=== PATIENT | female | born 1965 | race African-American/Black ===

== ENCOUNTER 2020-03-20 16:04 | Inpatient (IN) ==
[2020-03-20] MEDS ORDERED: AZITHROMYCIN INJ 500 MG in SODIUM CHLORIDE 0.9% 250 ML IV STA (16:39)
[2020-03-20] MEDS ORDERED: FUROSEMIDE 40 MG/4 ML VIAL IV STA (16:39)
[2020-03-20] MEDS ORDERED: cefTRIAXone 1,000 MG in SODIUM CHLORIDE 0.9% 100 ML IV STA (16:39)
[2020-03-20] MEDS ORDERED: methylPREDNISolone SOD SUC 125 MG/2 ML VIAL IV STA (16:39)
[2020-03-20] MEDS ORDERED: FUROSEMIDE 40 MG/4 ML VIAL ONE (16:43)
[2020-03-20] MEDS ORDERED: methylPREDNISolone SOD SUC 125 MG/2 ML VIAL ONE (16:43)
[2020-03-20] MEDS ORDERED: VANCOMYCIN INJ 1,000 MG in SODIUM CHLORIDE 0.9% 250 ML IV STA (16:46)
[2020-03-20] MEDS ORDERED: ALBUTEROL NEB SOLN 5 MG/ML 20 ML/BOTTLE CONT NEB SCH (17:00)
[2020-03-20 17:03] LABS: ABG Base Excess -0.3 MMOL/L (-2.5-2.5); ABG Oxygen Saturation 46.8 % (95-100); ABG PCO2 57.5 MM HG (35-48); ABG PH 7.292 (7.35-7.45); ABG TCO2 24.7 MMOL/L (23-27)
[2020-03-20 17:08] LABS: ABG PO2 32.2 MM HG (80-95)
[2020-03-20 17:10] LABS: INR 1.2; PT Patient Result 13.1 SECS (9.8-11.9)
[2020-03-20 17:13] LABS: Apearance,Urine CLOUDY (Clear); Bacteria,Urine Moderate /HPF (Few); Barbiturates Screen,Urine Negative (Negative); Benzodiazepines Screen,Urine Negative (Negative); Bilirubin,Urine Negative (Negative); Blood, Urine Moderate mg/dL (Negative); Cannabinoid Screen,Urine Negative (Negative); Glucose,Urine (UA) Negative (Negative); Hyaline Casts,Urine 7 /LPF (0-3); Ketones,Urine Negative (Negative); Mucus,Urine Occasional /LPF (Occasional); Nitrite,Urine Negative (Negative); Opiate Screen,Urine Negative (Negative); Phencyclidine Screen,Urine Negative (Negative); Protein,Urine 30 MG/DL; RBC,Urine 3 /HPF (0-4); Sperm,Urine Occasional /HPF (Negative); Squamous Epithelial Cell,Urine Occasional /HPF (0-10); Urine Color Yellow (Yellow); Urine Specific Gravity 1.011 (1.001-1.035); Urine Urobilinogen < 2.0 EU/DL (0.2-1.0)
[2020-03-20 17:25] LABS: Basophils # 0.1 10*3/uL (0.0-0.2); Basophils % 0.3 % (0.0-0.8); Hematocrit 46.9 VOL% (35.7-47.0); Hemoglobin 14.2 GM/DL (12.0-16.0); Immature Granulocytes % 1.2 %; Immature Granulocytes Absolute 0.31 #; Lymphocytes # 1.3 10*3/uL (1.4-4.0); Mean Corpuscular HGB Conc 30.3 GM/DL (32-36); Monocytes % 1.7 % (1.7-12.7); NRBC # 0.04 10*3/uL; Neutrophils % 91.8 % (38.7-73.9); Platelet Count 344 T/CUMM (130-400); Red Blood Count 5.72 MC/CUMM (3.8-5.5); Red Cell Distribution Width 15.8 % (9.3-17.3); White Blood Count 25.5 T/CUMM (4-12)
[2020-03-20 17:26] LABS: Alanine Aminotransferase 38 U/L (13-56); Alkaline Phosphatase 85 U/L (45-117); Aspartate Amino Transferase 72 U/L (0-37); Blood Urea Nitrogen 16 MG/DL (7-18); CKMB % 0.4 %; Calcium 9.1 MG/DL (8.5-10.1); Estimated Glom Filtration Rate 83 ML/MIN; Glucose 156 MG/DL (74-106); Osmolality,Calculated 269.4 MOS/KG (273-304); Total Protein 8.9 G/DL (6.4-8.3); Troponin I < 0.015 NG/ML (0.00-0.045)
[2020-03-20 17:40] LABS: Band Neutrophils 1 % (0-10); Lymphocytes 7 % (20-55); Myelocytes 1 %; Segmented Neutrophils 89 % (50-85); Total Cells Counted 100; Toxic Granulation 1+
[2020-03-20 17:41] LABS: Hypochromasia Slight; Microcytosis 1+; Platelet Estimate Normal; Poikilocytosis 1+
[2020-03-20 17:42] LABS: Ferritin 191.2 ng/ml (8-252)
[2020-03-20 18:27] LABS: ABG Base Excess 2.7 MMOL/L (-2.5-2.5); ABG HCO3 25.3 MMOL/L (20-26); ABG Oxygen Saturation 32.8 % (95-100); ABG PCO2 45.3 MM HG (35-48); ABG PH 7.401 (7.35-7.45); ABG TCO2 24.8 MMOL/L (23-27)
[2020-03-20 18:30] LABS: ABG PO2 22.9 MM HG (80-95)
[2020-03-20] MEDS ORDERED: ETOMIDATE 20 MG/10 ML VIAL IV STA (18:40)
[2020-03-20] MEDS ORDERED: ROCURONIUM 100 MG/10 ML VIAL IV STA (18:41)
[2020-03-20] MEDS ORDERED: ROCURONIUM 100 MG/10 ML VIAL IV ONE (19:00)
[2020-03-20] MEDS ORDERED: ETOMIDATE 20 MG/10 ML VIAL IV ONE (19:00)
[2020-03-20] MEDS ORDERED: GLUCAGON 1 MG VIAL IM PRN (20:14)
[2020-03-20] MEDS ORDERED: ONDANSETRON 4 MG/2 ML VIAL IV PRN (20:26)
[2020-03-20] MEDS ORDERED: SODIUM CHLORIDE 0.9% 1,000 ML IV SCH (20:30)
[2020-03-20] MEDS ORDERED: METOPROLOL TARTRATE 5 MG/5 ML VIAL IV ONE (20:54)
[2020-03-20] MEDS ORDERED: DEXTROSE 10% 250 ML BAG IV PRN (20:55)
[2020-03-20] MEDS ORDERED: VECURONIUM 10 MG VIAL IV ONE (21:24)
[2020-03-20] MEDS ORDERED: VECURONIUM 10 MG VIAL IV STA (21:43)
[2020-03-20] MEDS ORDERED: FUROSEMIDE 40 MG/4 ML VIAL IV ONE (23:56)
[2020-03-21 00:04] LABS: ABG Base Excess -1.5 MMOL/L (-2.5-2.5); ABG HCO3 22.2 MMOL/L (20-26); ABG Oxygen Saturation 55.4 % (95-100); ABG TCO2 29.1 MMOL/L (23-27); Allen Test Positive; Pt O2 Delivery Device Ventilator
[2020-03-21 00:07] LABS: ABG PCO2 92.2 MM HG (35-48); ABG PH 7.146 (7.35-7.45)
[2020-03-21 00:08] LABS: ABG PO2 40.7 MM HG (80-95)
[2020-03-21 01:37] LABS: ABG Base Excess 0.1 MMOL/L (-2.5-2.5); ABG HCO3 24.1 MMOL/L (20-26); ABG Oxygen Saturation 80.4 % (95-100); ABG PCO2 65.1 MM HG (35-48); ABG PH 7.262 (7.35-7.45); ABG PO2 53.6 MM HG (80-95); ABG TCO2 26.1 MMOL/L (23-27); Allen Test Positive; Pt O2 Delivery Device Ventilator
[2020-03-21] MEDS: ROCURONIUM 500 MG in SODIUM CHLORIDE 0.9% 500 ML IV PRN ×4 (01:53→20:41)
[2020-03-21] MEDS: DOBUTamine 500 MG/250 ML PREMIX IV PRN (03:01)
[2020-03-21 03:43] LABS: ABG Base Excess -0.3 MMOL/L (-2.5-2.5); ABG HCO3 23.8 MMOL/L (20-26); ABG Oxygen Saturation 78.1 % (95-100); ABG PCO2 61.3 MM HG (35-48); ABG PH 7.274 (7.35-7.45); ABG PO2 50.1 MM HG (80-95); ABG TCO2 25.2 MMOL/L (23-27); Allen Test Positive; Pt O2 Delivery Device Ventilator
[2020-03-21 03:57] LABS: Calcium 8.9 MG/DL (8.5-10.1); Osmolality,Calculated 275.1 MOS/KG (273-304); Risk Ratio 5.86; Thyroid Stimulating Hormone 0.589 uIU/ml (0.358-3.74); VLDL CHOLESTEROL 37.2 MG/DL
[2020-03-21 03:58] LABS: Basophils % 0.2 % (0.0-0.8); Hematocrit 44.4 VOL% (35.7-47.0); Hemoglobin 13.1 GM/DL (12.0-16.0); Immature Granulocytes % 0.9 %; Immature Granulocytes Absolute 0.21 #; Lymphocytes # 0.7 10*3/uL (1.4-4.0); Mean Corpuscular HGB Conc 29.5 GM/DL (32-36); Mean Corpuscular Volume 84.6 FL (87-102); Monocytes % 1.1 % (1.7-12.7); NRBC # 0.06 10*3/uL; Neutrophils % 94.8 % (38.7-73.9); Platelet Count 273 T/CUMM (130-400); Red Blood Count 5.25 MC/CUMM (3.8-5.5); Red Cell Distribution Width 15.9 % (9.3-17.3); White Blood Count 23.1 T/CUMM (4-12)
[2020-03-21 04:13] LABS: Band Neutrophils 3 % (0-10); Lymphocytes 2 % (20-55); Nucleated Red Blood Cells 1 (0-5); Segmented Neutrophils 94 % (50-85); Total Cells Counted 100
[2020-03-21 04:14] LABS: Anisocytosis Slight; Microcytosis 1+; Platelet Estimate Normal
[2020-03-21 04:15] LABS: Hypochromasia 1+; Polychromasia Slight
[2020-03-21] MEDS: INSULIN LISPRO 100 UNIT/ML SUBCUT SCH ×5 (07:22→20:41)
[2020-03-21] MEDS ORDERED: FUROSEMIDE 20 MG/2 ML VIAL IV SCH (08:00)
[2020-03-21] MEDS: PANTOPRAZOLE 40 MG VIAL IV SCH (08:00)
[2020-03-21] MEDS: FUROSEMIDE 20 MG/2 ML VIAL IV SCH ×2 (08:02→16:00)
[2020-03-21] MEDS: cefTRIAXone 1,000 MG in SYRINGE 1 EACH IV SCH (08:30)
[2020-03-21] MEDS ORDERED: HEPARIN 5,000 UNIT/1 ML VIAL SUBCUT SCH (09:00)
[2020-03-21] MEDS: methylPREDNISolone SOD SUC 40 MG/1 ML VIAL IV SCH ×2 (10:43→16:30)
[2020-03-21] MEDS: ENOXAPARIN 150 MG/ML SYRINGE SUBCUT SCH ×2 (10:44→23:49)
[2020-03-21] MEDS ORDERED: SODIUM CHLORIDE 0.9% 250 ML IV ONE (17:32)
[2020-03-21] MEDS ORDERED: AZITHROMYCIN INJ 500 MG in SODIUM CHLORIDE 0.9% 250 ML IV SCH (18:00)
[2020-03-21] MEDS: AZITHROMYCIN INJ 250 MG in SODIUM CHLORIDE 0.9% 250 ML IV SCH (19:04)
[2020-03-22] MEDS: methylPREDNISolone SOD SUC 40 MG/1 ML VIAL IV SCH ×3 (00:30→16:45)
[2020-03-22] MEDS: DOBUTamine 500 MG/250 ML PREMIX IV PRN (04:10)
[2020-03-22 04:58] LABS: ABG Base Excess 3.6 MMOL/L (-2.5-2.5); ABG HCO3 27.3 MMOL/L (20-26); ABG Oxygen Saturation 78.3 % (95-100); ABG PCO2 52.8 MM HG (35-48); ABG PH 7.365 (7.35-7.45); ABG PO2 46.6 MM HG (80-95); Allen Test Positive; Pt O2 Delivery Device Ventilator
[2020-03-22] MEDS: PANTOPRAZOLE 40 MG VIAL IV SCH (08:30)
[2020-03-22] MEDS: FUROSEMIDE 20 MG/2 ML VIAL IV SCH ×2 (08:30→16:45)
[2020-03-22] MEDS: cefTRIAXone 1,000 MG in SYRINGE 1 EACH IV SCH (08:36)
[2020-03-22 08:51] LABS: Basophils % 0.1 % (0.0-0.8); Hemoglobin 11.5 GM/DL (12.0-16.0); Immature Granulocytes % 2.1 %; Immature Granulocytes Absolute 0.47 #; Lymphocytes # 0.5 10*3/uL (1.4-4.0); Mean Corpuscular HGB Conc 30.3 GM/DL (32-36); Mean Corpuscular Volume 81.9 FL (87-102); Mean Platelet Volume 10.6 FL (9.6-12.0); Monocytes % 1.3 % (1.7-12.7); Neutrophils % 94.5 % (38.7-73.9); Platelet Count 255 T/CUMM (130-400); Red Blood Count 4.64 MC/CUMM (3.8-5.5); Red Cell Distribution Width 16.2 % (9.3-17.3); White Blood Count 22.8 T/CUMM (4-12)
[2020-03-22 09:12] LABS: Band Neutrophils 3 % (0-10); Hypochromasia 1+; Lymphocytes 2 % (20-55); Microcytosis 1+; Ovalocytes Slight; Platelet Estimate Adequate; Segmented Neutrophils 94 % (50-85); Total Cells Counted 100
[2020-03-22] MEDS: INSULIN LISPRO 100 UNIT/ML SUBCUT SCH ×4 (09:15→21:03)
[2020-03-22 09:16] LABS: Albumin 2.1 G/DL (3.4-5.0); Bilirubin,Total 0.6 MG/DL (0.2-1.0); Calcium 8.3 MG/DL (8.5-10.1); Osmolality,Calculated 280.7 MOS/KG (273-304); Total Protein 6.8 G/DL (6.4-8.3)
[2020-03-22] MEDS: POTASSIUM CHLORIDE 20 MEQ/15 ML UDCUP PER TUBE SCH ×2 (11:10→13:25)
[2020-03-22] MEDS: ENOXAPARIN 150 MG/ML SYRINGE SUBCUT SCH ×2 (11:10→21:03)
[2020-03-22] MEDS: ROCURONIUM 500 MG in SODIUM CHLORIDE 0.9% 500 ML IV PRN ×2 (15:00→22:16)
[2020-03-22] MEDS: AZITHROMYCIN INJ 250 MG in SODIUM CHLORIDE 0.9% 250 ML IV SCH (17:05)
[2020-03-23] MEDS: methylPREDNISolone SOD SUC 40 MG/1 ML VIAL IV SCH ×3 (00:29→17:48)
[2020-03-23] MEDS: ROCURONIUM 500 MG in SODIUM CHLORIDE 0.9% 500 ML IV PRN ×4 (04:30→23:50)
[2020-03-23 04:55] LABS: Albumin 2.1 G/DL (3.4-5.0); Bilirubin,Total 0.4 MG/DL (0.2-1.0); Calcium 7.9 MG/DL (8.5-10.1); Osmolality,Calculated 285.3 MOS/KG (273-304); Total Protein 6.7 G/DL (6.4-8.3)
[2020-03-23 05:01] LABS: ABG Base Excess 3.6 MMOL/L (-2.5-2.5); ABG HCO3 29.9 MMOL/L (20-26); ABG Oxygen Saturation 92.1 % (95-100); ABG PH 7.369 (7.35-7.45); ABG PO2 67.3 MM HG (80-95); ABG TCO2 31.5 MMOL/L (23-27); Allen Test Positive; Pt O2 Delivery Device Ventilator
[2020-03-23 05:05] LABS: Basophils # 0.1 10*3/uL (0.0-0.2); Basophils % 0.3 % (0.0-0.8); Hematocrit 37.7 VOL% (35.7-47.0); Hemoglobin 11.3 GM/DL (12.0-16.0); Immature Granulocytes % 4.1 %; Lymphocytes # 0.5 10*3/uL (1.4-4.0); Lymphocytes % 2.6 % (21.3-54.2); Mean Corpuscular Volume 82.9 FL (87-102); Mean Platelet Volume 11.1 FL (9.6-12.0); Monocytes % 2.4 % (1.7-12.7); NRBC # 0.09 10*3/uL; Neutrophils % 90.6 % (38.7-73.9); Platelet Count 281 T/CUMM (130-400); Red Blood Count 4.55 MC/CUMM (3.8-5.5); Red Cell Distribution Width 16.4 % (9.3-17.3); White Blood Count 19.5 T/CUMM (4-12)
[2020-03-23 05:41] LABS: Band Neutrophils 2 % (0-10); Hypochromasia 1+; Lymphocytes 1 % (20-55); Microcytosis 1+; Platelet Estimate Normal; Segmented Neutrophils 94 % (50-85); Total Cells Counted 100
[2020-03-23] MEDS: DOBUTamine 500 MG/250 ML PREMIX IV PRN (06:23)
[2020-03-23] MEDS: INSULIN LISPRO 100 UNIT/ML SUBCUT SCH ×3 (07:54→17:48)
[2020-03-23] MEDS: FUROSEMIDE 20 MG/2 ML VIAL IV SCH ×2 (08:51→17:47)
[2020-03-23] MEDS: cefTRIAXone 1,000 MG in SYRINGE 1 EACH IV SCH (08:52)
[2020-03-23] MEDS: PANTOPRAZOLE 40 MG VIAL IV SCH (08:53)
[2020-03-23] MEDS: ENOXAPARIN 150 MG/ML SYRINGE SUBCUT SCH ×2 (11:31→21:45)
[2020-03-23] MEDS: AZITHROMYCIN INJ 250 MG in SODIUM CHLORIDE 0.9% 250 ML IV SCH (17:48)
[2020-03-23] MEDS: HYDROXYCHLOROQUINE 200 MG TABLET PO SCH (21:44)
[2020-03-23] MEDS: ZINC SULFATE 220 MG CAPSULE PO SCH (21:45)
[2020-03-24] MEDS: INSULIN LISPRO 100 UNIT/ML SUBCUT SCH ×4 (00:35→19:34)
[2020-03-24] MEDS: methylPREDNISolone SOD SUC 40 MG/1 ML VIAL IV SCH ×3 (00:35→18:00)
[2020-03-24 03:52] LABS: ABG Base Excess 6.2 MMOL/L (-2.5-2.5); ABG Oxygen Saturation 99.1 % (95-100); ABG PCO2 51.8 MM HG (35-48); ABG PH 7.402 (7.35-7.45); ABG TCO2 28.8 MMOL/L (23-27); Allen Test Positive; Pt O2 Delivery Device Ventilator
[2020-03-24 05:57] LABS: Basophils # 0.1 10*3/uL (0.0-0.2); Basophils % 0.4 % (0.0-0.8); Hematocrit 39.8 VOL% (35.7-47.0); Immature Granulocytes % 6.5 %; Immature Granulocytes Absolute 1.21 #; Lymphocytes # 0.6 10*3/uL (1.4-4.0); Lymphocytes % 3.4 % (21.3-54.2); Mean Corpuscular HGB Conc 28.1 GM/DL (32-36); Mean Corpuscular Volume 87.3 FL (87-102); Mean Platelet Volume 10.9 FL (9.6-12.0); Monocytes % 4.7 % (1.7-12.7); NRBC # 0.07 10*3/uL; Platelet Count 362 T/CUMM (130-400); Red Blood Count 4.56 MC/CUMM (3.8-5.5); Red Cell Distribution Width 16.7 % (9.3-17.3); White Blood Count 18.6 T/CUMM (4-12)
[2020-03-24 06:01] LABS: Calcium 8.3 MG/DL (8.5-10.1); Osmolality,Calculated 290.8 MOS/KG (273-304)
[2020-03-24 06:03] LABS: Hemoglobin 11.2 GM/DL (12.0-16.0)
[2020-03-24 06:49] LABS: Band Neutrophils 7 % (0-10); Lymphocytes 2 % (20-55); Metamyelocytes 6 %; Nucleated Red Blood Cells 1 (0-5); Segmented Neutrophils 78 % (50-85); Total Cells Counted 100
[2020-03-24 06:50] LABS: Anisocytosis 1+; Hypochromasia 2+; Macrocytosis 1+; Ovalocytes 1+; Target Cells 1+
[2020-03-24] MEDS ORDERED: MIDAZOLAM 100 MG in SODIUM CHLORIDE 0.9% 80 ML IV PRN (08:05)
[2020-03-24] MEDS: HYDROXYCHLOROQUINE 200 MG TABLET PO SCH ×2 (08:56→21:35)
[2020-03-24] MEDS: fentaNYL INJ 1,250 MCG in SODIUM CHLORIDE 0.9% 225 ML IV PRN ×3 (08:59→21:35)
[2020-03-24] MEDS: ENOXAPARIN 150 MG/ML SYRINGE SUBCUT SCH ×2 (08:59→21:35)
[2020-03-24] MEDS: PANTOPRAZOLE 40 MG VIAL IV SCH (09:00)
[2020-03-24] MEDS: FUROSEMIDE 20 MG/2 ML VIAL IV SCH ×2 (09:00→16:02)
[2020-03-24] MEDS: cefTRIAXone 1,000 MG in SYRINGE 1 EACH IV SCH (09:37)
[2020-03-24] MEDS ORDERED: SODIUM CHLORIDE 0.9% 1,000 ML IV PRN (10:44)
[2020-03-24] MEDS ORDERED: NOREPINEPHRINE 8 MG in SODIUM CHLORIDE 0.9% 242 ML IV PRN (11:47)
[2020-03-24] MEDS: ROCURONIUM 500 MG in SODIUM CHLORIDE 0.9% 500 ML IV PRN ×2 (13:01→19:00)
[2020-03-24] MEDS: AZITHROMYCIN INJ 250 MG in SODIUM CHLORIDE 0.9% 250 ML IV SCH (18:30)
[2020-03-25] MEDS: methylPREDNISolone SOD SUC 40 MG/1 ML VIAL IV SCH ×3 (00:10→17:15)
[2020-03-25] MEDS: ROCURONIUM 500 MG in SODIUM CHLORIDE 0.9% 500 ML IV PRN ×5 (00:15→23:35)
[2020-03-25] MEDS: INSULIN LISPRO 100 UNIT/ML SUBCUT SCH ×4 (00:24→17:54)
[2020-03-25] MEDS: fentaNYL INJ 1,250 MCG in SODIUM CHLORIDE 0.9% 225 ML IV PRN ×5 (03:10→23:00)
[2020-03-25 04:00] LABS: ABG Base Excess 7.8 MMOL/L (-2.5-2.5); ABG HCO3 34.2 MMOL/L (20-26); ABG Oxygen Saturation 92.3 % (95-100); ABG PCO2 56.3 MM HG (35-48); ABG PH 7.401 (7.35-7.45); ABG PO2 68.2 MM HG (80-95); ABG TCO2 35.9 MMOL/L (23-27); Allen Test Positive; Pt O2 Delivery Device Ventilator
[2020-03-25 05:22] LABS: Calcium 8.1 MG/DL (8.5-10.1); Osmolality,Calculated 304.1 MOS/KG (273-304)
[2020-03-25] MEDS: PANTOPRAZOLE 40 MG VIAL IV SCH (08:00)
[2020-03-25] MEDS: ZINC SULFATE 220 MG CAPSULE PO SCH (08:14)
[2020-03-25] MEDS: HYDROXYCHLOROQUINE 200 MG TABLET PO SCH ×2 (08:14→21:00)
[2020-03-25] MEDS: FUROSEMIDE 20 MG/2 ML VIAL IV SCH (08:15)
[2020-03-25] MEDS: cefTRIAXone 1,000 MG in SYRINGE 1 EACH IV SCH (08:21)
[2020-03-25] MEDS: ENOXAPARIN 150 MG/ML SYRINGE SUBCUT SCH ×2 (09:01→21:00)
[2020-03-25] MEDS: LISINOPRIL/HCTZ 20-12.5 MG TABLET PO SCH (12:15)
[2020-03-25] MEDS: amLODIPine 5 MG TABLET PO SCH (12:15)
[2020-03-26] MEDS: INSULIN LISPRO 100 UNIT/ML SUBCUT SCH ×5 (01:01→23:37)
[2020-03-26] MEDS: methylPREDNISolone SOD SUC 40 MG/1 ML VIAL IV SCH ×3 (01:02→17:37)
[2020-03-26] MEDS: fentaNYL INJ 2,500 MCG in SODIUM CHLORIDE 0.9% 450 ML IV PRN ×4 (01:25→19:36)
[2020-03-26 03:59] LABS: Allen Test Positive; Pt O2 Delivery Device Ventilator
[2020-03-26 04:04] LABS: ABG Base Excess 9.3 MMOL/L (-2.5-2.5); ABG Oxygen Saturation 92.3 % (95-100); ABG PCO2 58.4 MM HG (35-48); ABG PO2 66.5 MM HG (80-95); ABG TCO2 32.6 MMOL/L (23-27)
[2020-03-26 05:21] LABS: Basophils # 0.1 10*3/uL (0.0-0.2); Basophils % 0.7 % (0.0-0.8); Hematocrit 36.9 VOL% (35.7-47.0); Hemoglobin 10.5 GM/DL (12.0-16.0); Immature Granulocytes % 13.3 %; Immature Granulocytes Absolute 1.81 #; Lymphocytes # 0.6 10*3/uL (1.4-4.0); Lymphocytes % 4.2 % (21.3-54.2); Mean Corpuscular HGB Conc 28.5 GM/DL (32-36); Mean Corpuscular Volume 87.2 FL (87-102); Mean Platelet Volume 11.2 FL (9.6-12.0); Monocytes % 5.4 % (1.7-12.7); NRBC # 0.02 10*3/uL; Neutrophils % 76.4 % (38.7-73.9); Platelet Count 343 T/CUMM (130-400); Red Blood Count 4.23 MC/CUMM (3.8-5.5); Red Cell Distribution Width 16.8 % (9.3-17.3); White Blood Count 13.6 T/CUMM (4-12)
[2020-03-26 05:26] LABS: Band Neutrophils 2 % (0-10); Hypochromasia 1+; Lymphocytes 9 % (20-55); Microcytosis 1+; Nucleated Red Blood Cells 1 (0-5); Platelet Estimate Adequate; Segmented Neutrophils 80 % (50-85); Total Cells Counted 100
[2020-03-26] MEDS: ROCURONIUM 500 MG in SODIUM CHLORIDE 0.9% 500 ML IV PRN ×3 (05:29→19:32)
[2020-03-26 05:43] LABS: Calcium 8.5 MG/DL (8.5-10.1); Osmolality,Calculated 308.9 MOS/KG (273-304)
[2020-03-26] MEDS: amLODIPine 5 MG TABLET PO SCH (08:19)
[2020-03-26] MEDS: FUROSEMIDE 40 MG/5 ML UDCUP PO SCH (08:19)
[2020-03-26] MEDS: LISINOPRIL/HCTZ 20-12.5 MG TABLET PO SCH (08:20)
[2020-03-26] MEDS: cefTRIAXone 1,000 MG in SYRINGE 1 EACH IV SCH (08:20)
[2020-03-26] MEDS: PANTOPRAZOLE 40 MG VIAL IV SCH (08:20)
[2020-03-26] MEDS: HYDROXYCHLOROQUINE 200 MG TABLET PO SCH ×2 (08:43→22:26)
[2020-03-26] MEDS: ENOXAPARIN 150 MG/ML SYRINGE SUBCUT SCH ×2 (09:02→22:26)
[2020-03-26] MEDS ORDERED: ROCURONIUM 100 MG/10 ML VIAL IV ONE (12:03)
[2020-03-27] MEDS: methylPREDNISolone SOD SUC 40 MG/1 ML VIAL IV SCH ×3 (01:02→16:30)
[2020-03-27] MEDS: fentaNYL INJ 2,500 MCG in SODIUM CHLORIDE 0.9% 450 ML IV PRN ×3 (01:47→14:52)
[2020-03-27] MEDS: ROCURONIUM 500 MG in SODIUM CHLORIDE 0.9% 500 ML IV PRN ×2 (02:06→08:40)
[2020-03-27] MEDS: INSULIN LISPRO 100 UNIT/ML SUBCUT SCH ×3 (06:08→17:01)
[2020-03-27 08:24] LABS: ABG Base Excess 6.2 MMOL/L (-2.5-2.5); ABG Oxygen Saturation 95.4 % (95-100); ABG PCO2 58.3 MM HG (35-48); ABG PH 7.364 (7.35-7.45); ABG PO2 79.8 MM HG (80-95); ABG TCO2 30.1 MMOL/L (23-27); Allen Test Positive; Pt O2 Delivery Device Ventilator
[2020-03-27] MEDS: HYDROXYCHLOROQUINE 200 MG TABLET PO SCH ×2 (08:40→20:12)
[2020-03-27] MEDS: FUROSEMIDE 40 MG/5 ML UDCUP PO SCH (08:40)
[2020-03-27] MEDS: amLODIPine 5 MG TABLET PO SCH (08:40)
[2020-03-27] MEDS: LISINOPRIL/HCTZ 20-12.5 MG TABLET PO SCH (08:40)
[2020-03-27] MEDS: PANTOPRAZOLE 40 MG VIAL IV SCH (08:40)
[2020-03-27] MEDS: cefTRIAXone 1,000 MG in SYRINGE 1 EACH IV SCH (08:41)
[2020-03-27] MEDS: ZINC SULFATE 220 MG CAPSULE PO SCH (08:42)
[2020-03-27 09:19] LABS: Basophils # 0.1 10*3/uL (0.0-0.2); Basophils % 0.7 % (0.0-0.8); Hemoglobin 10.4 GM/DL (12.0-16.0); Immature Granulocytes % 17.4 %; Immature Granulocytes Absolute 2.45 #; Lymphocytes # 0.6 10*3/uL (1.4-4.0); Mean Corpuscular HGB Conc 28.1 GM/DL (32-36); Mean Corpuscular Volume 88.7 FL (87-102); Mean Platelet Volume 10.6 FL (9.6-12.0); Monocytes % 4.2 % (1.7-12.7); NRBC # 0.04 10*3/uL; Neutrophils % 73.7 % (38.7-73.9); Platelet Count 357 T/CUMM (130-400); Red Blood Count 4.17 MC/CUMM (3.8-5.5); Red Cell Distribution Width 16.6 % (9.3-17.3); White Blood Count 14.1 T/CUMM (4-12)
[2020-03-27 09:22] LABS: Band Neutrophils 3 % (0-10); Hypochromasia 1+; Lymphocytes 6 % (20-55); Microcytosis Slight; Nucleated Red Blood Cells 1 (0-5); Platelet Estimate Adequate; Segmented Neutrophils 88 % (50-85); Total Cells Counted 100
[2020-03-27 09:28] LABS: Calcium 8.3 MG/DL (8.5-10.1)
[2020-03-27 09:34] LABS: Osmolality,Calculated 314.6 MOS/KG (273-304)
[2020-03-27] MEDS: ENOXAPARIN 150 MG/ML SYRINGE SUBCUT SCH (10:52)
[2020-03-27] MEDS ORDERED: ROCURONIUM 1,000 MG in SODIUM CHLORIDE 0.9% 175 ML IV PRN (11:29)
[2020-03-27] MEDS ORDERED: FENTANYL IV PRN (11:30)
[2020-03-27] MEDS ORDERED: SODIUM CHLORIDE 0.9% IV PRN (11:30)
[2020-03-27] MEDS ORDERED: POTASSIUM PHOSPHATE 30 MMOL in SODIUM CHLORIDE 0.9% 250 ML IV ONE (12:00)
[2020-03-27] MEDS: fentaNYL INJ 2,500 MCG in SODIUM CHLORIDE 0.9% 75 ML IV PRN (14:52)
[2020-03-27] MEDS: ROCURONIUM 1,000 MG in SODIUM CHLORIDE 0.9% 175 ML IV PRN (23:10)
[2020-03-28] MEDS: INSULIN LISPRO 100 UNIT/ML SUBCUT SCH ×4 (00:24→18:04)
[2020-03-28] MEDS: methylPREDNISolone SOD SUC 40 MG/1 ML VIAL IV SCH ×3 (00:26→16:22)
[2020-03-28] MEDS: fentaNYL INJ 2,500 MCG in SODIUM CHLORIDE 0.9% 75 ML IV PRN ×2 (01:30→16:56)
[2020-03-28] MEDS: HYDROXYCHLOROQUINE 200 MG TABLET PO SCH (09:22)
[2020-03-28] MEDS: cefTRIAXone 1,000 MG in SYRINGE 1 EACH IV SCH (09:22)
[2020-03-28] MEDS: amLODIPine 5 MG TABLET PO SCH (09:22)
[2020-03-28] MEDS: FUROSEMIDE 40 MG/5 ML UDCUP PO SCH (09:23)
[2020-03-28] MEDS: PANTOPRAZOLE 40 MG VIAL IV SCH (09:23)
[2020-03-28] MEDS: LISINOPRIL/HCTZ 20-12.5 MG TABLET PO SCH (09:25)
[2020-03-28 13:14] LABS: Basophils # 0.1 10*3/uL (0.0-0.2); Basophils % 0.4 % (0.0-0.8); Hematocrit 38.4 VOL% (35.7-47.0); Hemoglobin 10.8 GM/DL (12.0-16.0); Immature Granulocytes % 10.7 %; Immature Granulocytes Absolute 1.89 #; Lymphocytes # 0.6 10*3/uL (1.4-4.0); Lymphocytes % 3.5 % (21.3-54.2); Mean Corpuscular HGB Conc 28.1 GM/DL (32-36); Mean Corpuscular Volume 90.6 FL (87-102); Mean Platelet Volume 10.6 FL (9.6-12.0); NRBC # 0.04 10*3/uL; Neutrophils % 80.4 % (38.7-73.9); Platelet Count 343 T/CUMM (130-400); Red Blood Count 4.24 MC/CUMM (3.8-5.5); Red Cell Distribution Width 16.3 % (9.3-17.3); White Blood Count 17.7 T/CUMM (4-12)
[2020-03-28 13:55] LABS: Band Neutrophils 2 % (0-10); Lymphocytes 5 % (20-55); Myelocytes 2 %; Segmented Neutrophils 90 % (50-85); Total Cells Counted 100
[2020-03-28 13:56] LABS: Hypochromasia Slight; Platelet Estimate Normal
[2020-03-28] MEDS: ROCURONIUM 1,000 MG in SODIUM CHLORIDE 0.9% 175 ML IV PRN (14:21)
[2020-03-29] MEDS: methylPREDNISolone SOD SUC 40 MG/1 ML VIAL IV SCH ×3 (00:12→17:00)
[2020-03-29] MEDS: INSULIN LISPRO 100 UNIT/ML SUBCUT SCH ×4 (00:45→18:02)
[2020-03-29 04:27] LABS: ABG Base Excess 8.1 MMOL/L (-2.5-2.5); ABG HCO3 31.9 MMOL/L (20-26); ABG Oxygen Saturation 96.3 % (95-100); ABG PCO2 56.1 MM HG (35-48); ABG PH 7.398 (7.35-7.45); ABG PO2 82.7 MM HG (80-95); ABG TCO2 31.4 MMOL/L (23-27); Allen Test Positive; Pt O2 Delivery Device Ventilator
[2020-03-29 06:40] LABS: Basophils # 0.1 10*3/uL (0.0-0.2); Basophils % 0.5 % (0.0-0.8); Hematocrit 39.6 VOL% (35.7-47.0); Hemoglobin 11.1 GM/DL (12.0-16.0); Immature Granulocytes % 9.5 %; Immature Granulocytes Absolute 1.68 #; Lymphocytes # 0.7 10*3/uL (1.4-4.0); Lymphocytes % 3.8 % (21.3-54.2); Mean Corpuscular Volume 90.4 FL (87-102); Mean Platelet Volume 11.8 FL (9.6-12.0); Monocytes % 3.1 % (1.7-12.7); NRBC # 0.02 10*3/uL; Neutrophils % 83.1 % (38.7-73.9); Platelet Count 332 T/CUMM (130-400); Red Blood Count 4.38 MC/CUMM (3.8-5.5); Red Cell Distribution Width 16.8 % (9.3-17.3); White Blood Count 17.7 T/CUMM (4-12)
[2020-03-29 06:50] LABS: Band Neutrophils 3 % (0-10); Hypochromasia 1+; Lymphocytes 2 % (20-55); Myelocytes 3 %; Segmented Neutrophils 88 % (50-85); Total Cells Counted 100
[2020-03-29 06:51] LABS: Microcytosis 1+; Platelet Estimate Normal; Polychromasia Slight
[2020-03-29] MEDS: fentaNYL INJ 2,500 MCG in SODIUM CHLORIDE 0.9% 75 ML IV PRN ×2 (07:12→19:56)
[2020-03-29] MEDS: ROCURONIUM 1,000 MG in SODIUM CHLORIDE 0.9% 175 ML IV PRN (07:45)
[2020-03-29] MEDS: ZINC SULFATE 220 MG CAPSULE PO SCH (08:29)
[2020-03-29] MEDS: PANTOPRAZOLE 40 MG VIAL IV SCH (08:29)
[2020-03-29] MEDS: amLODIPine 5 MG TABLET PO SCH (08:29)
[2020-03-29] MEDS: LISINOPRIL/HCTZ 20-12.5 MG TABLET PO SCH (08:29)
[2020-03-29] MEDS: FUROSEMIDE 40 MG/5 ML UDCUP PO SCH (08:29)
[2020-03-29] MEDS: cefTRIAXone 1,000 MG in SYRINGE 1 EACH IV SCH (08:33)
[2020-03-29 10:08] LABS: Calcium 8.7 MG/DL (8.5-10.1)
[2020-03-29] MEDS: ENOXAPARIN 40 MG/0.4 ML SYRINGE SUBCUT SCH ×2 (10:58→21:10)
[2020-03-30] MEDS: INSULIN LISPRO 100 UNIT/ML SUBCUT SCH ×4 (00:35→17:04)
[2020-03-30] MEDS: methylPREDNISolone SOD SUC 40 MG/1 ML VIAL IV SCH ×3 (00:45→17:03)
[2020-03-30] MEDS: ROCURONIUM 1,000 MG in SODIUM CHLORIDE 0.9% 175 ML IV PRN (01:25)
[2020-03-30 03:51] LABS: ABG Base Excess 7.8 MMOL/L (-2.5-2.5); ABG HCO3 32.7 MMOL/L (20-26); ABG Oxygen Saturation 96.9 % (95-100); ABG PCO2 48.2 MM HG (35-48); ABG PO2 91.7 MM HG (80-95); ABG TCO2 34.2 MMOL/L (23-27); Allen Test Positive; Pt O2 Delivery Device Ventilator
[2020-03-30] MEDS: fentaNYL INJ 2,500 MCG in SODIUM CHLORIDE 0.9% 75 ML IV PRN ×2 (07:00→20:57)
[2020-03-30 07:35] LABS: Stomatocytes Few
[2020-03-30 07:36] LABS: Hypochromasia 2+; Microcytosis Slight; Polychromasia Slight
[2020-03-30 07:39] LABS: Basophils # 0.1 10*3/uL (0.0-0.2); Basophils % 0.4 % (0.0-0.8); Hematocrit 38.5 VOL% (35.7-47.0); Hemoglobin 10.9 GM/DL (12.0-16.0); Immature Granulocytes % 7.7 %; Immature Granulocytes Absolute 1.62 #; Lymphocytes # 0.9 10*3/uL (1.4-4.0); Lymphocytes % 4.4 % (21.3-54.2); Mean Corpuscular HGB Conc 28.3 GM/DL (32-36); Mean Corpuscular Volume 88.3 FL (87-102); Mean Platelet Volume 11.7 FL (9.6-12.0); Monocytes % 4.7 % (1.7-12.7); NRBC # 0.02 10*3/uL; Neutrophils % 82.8 % (38.7-73.9); Platelet Count 287 T/CUMM (130-400); Red Blood Count 4.36 MC/CUMM (3.8-5.5); Red Cell Distribution Width 16.3 % (9.3-17.3); White Blood Count 21.1 T/CUMM (4-12)
[2020-03-30 07:44] LABS: Spherocytes Few
[2020-03-30 07:45] LABS: Giant Platelets Few
[2020-03-30] MEDS: cefTRIAXone 1,000 MG in SYRINGE 1 EACH IV SCH (08:32)
[2020-03-30] MEDS: PANTOPRAZOLE 40 MG VIAL IV SCH (08:32)
[2020-03-30] MEDS: ENOXAPARIN 40 MG/0.4 ML SYRINGE SUBCUT SCH ×2 (08:32→20:58)
[2020-03-30] MEDS: amLODIPine 5 MG TABLET PO SCH (08:33)
[2020-03-30] MEDS: LISINOPRIL/HCTZ 20-12.5 MG TABLET PO SCH (08:33)
[2020-03-30] MEDS: FUROSEMIDE 40 MG/5 ML UDCUP PO SCH (08:33)
[2020-03-30 08:42] LABS: Band Neutrophils 1 % (0-10); Lymphocytes 7 % (20-55); Metamyelocytes 2 %; Platelet Estimate Normal; Segmented Neutrophils 88 % (50-85); Total Cells Counted 100
[2020-03-30 09:26] LABS: Calcium 8.8 MG/DL (8.5-10.1); Osmolality,Calculated 297.7 MOS/KG (273-304)
[2020-03-31] MEDS: methylPREDNISolone SOD SUC 40 MG/1 ML VIAL IV SCH ×3 (01:01→17:20)
[2020-03-31] MEDS: INSULIN LISPRO 100 UNIT/ML SUBCUT SCH ×4 (01:02→17:20)
[2020-03-31 04:43] LABS: ABG Base Excess 6.1 MMOL/L (-2.5-2.5); ABG HCO3 33.3 MMOL/L (20-26); ABG Oxygen Saturation 91.1 % (95-100); ABG PCO2 61.2 MM HG (35-48); ABG PH 7.353 (7.35-7.45); ABG PO2 68.2 MM HG (80-95); ABG TCO2 35.1 MMOL/L (23-27); Allen Test Positive; Pt O2 Delivery Device Ventilator
[2020-03-31 07:04] LABS: Calcium 8.8 MG/DL (8.5-10.1); Osmolality,Calculated 291.4 MOS/KG (273-304)
[2020-03-31 07:23] LABS: Basophils # 0.1 10*3/uL (0.0-0.2); Basophils % 0.5 % (0.0-0.8); Hematocrit 39.4 VOL% (35.7-47.0); Immature Granulocytes % 8.6 %; Immature Granulocytes Absolute 2.25 #; Lymphocytes # 0.6 10*3/uL (1.4-4.0); Lymphocytes % 2.4 % (21.3-54.2); Mean Corpuscular HGB Conc 27.9 GM/DL (32-36); Mean Corpuscular Volume 89.3 FL (87-102); Mean Platelet Volume 11.7 FL (9.6-12.0); Monocytes % 2.1 % (1.7-12.7); NRBC # 0.03 10*3/uL; Neutrophils % 86.4 % (38.7-73.9); Platelet Count 328 T/CUMM (130-400); Red Blood Count 4.41 MC/CUMM (3.8-5.5); Red Cell Distribution Width 16.1 % (9.3-17.3); White Blood Count 26.1 T/CUMM (4-12)
[2020-03-31 08:13] LABS: Band Neutrophils 2 % (0-10); Lymphocytes 5 % (20-55); Platelet Estimate Normal; Segmented Neutrophils 90 % (50-85); Total Cells Counted 100
[2020-03-31 08:14] LABS: Hypochromasia 2+; Microcytosis 1+; Polychromasia Slight
[2020-03-31 08:15] LABS: Stomatocytes Slight
[2020-03-31] MEDS: PANTOPRAZOLE 40 MG VIAL IV SCH (08:25)
[2020-03-31] MEDS: FUROSEMIDE 40 MG/5 ML UDCUP PO SCH (08:25)
[2020-03-31] MEDS: ZINC SULFATE 220 MG CAPSULE PO SCH (08:25)
[2020-03-31] MEDS: ENOXAPARIN 40 MG/0.4 ML SYRINGE SUBCUT SCH ×2 (08:25→22:27)
[2020-03-31] MEDS: fentaNYL INJ 2,500 MCG in SODIUM CHLORIDE 0.9% 75 ML IV PRN (09:18)
[2020-03-31] MEDS: amLODIPine 5 MG TABLET PO SCH (09:22)
[2020-03-31] MEDS ORDERED: FUROSEMIDE 40 MG/4 ML VIAL ONE (19:40)
[2020-03-31] MEDS: FUROSEMIDE 40 MG/4 ML VIAL IV SCH (20:24)
[2020-04-01] MEDS: INSULIN LISPRO 100 UNIT/ML SUBCUT SCH ×4 (00:05→17:52)
[2020-04-01] MEDS: methylPREDNISolone SOD SUC 40 MG/1 ML VIAL IV SCH ×3 (00:05→17:05)
[2020-04-01] MEDS: fentaNYL INJ 2,500 MCG in SODIUM CHLORIDE 0.9% 75 ML IV PRN (01:01)
[2020-04-01 09:14] LABS: Allen Test Positive; Pt O2 Delivery Device Ventilator
[2020-04-01 09:15] LABS: ABG Base Excess 7.8 MMOL/L (-2.5-2.5); ABG HCO3 31.5 MMOL/L (20-26); ABG Oxygen Saturation 94.2 % (95-100); ABG PCO2 50.9 MM HG (35-48); ABG PH 7.427 (7.35-7.45); ABG PO2 71.6 MM HG (80-95); ABG TCO2 30.2 MMOL/L (23-27)
[2020-04-01] MEDS: FUROSEMIDE 40 MG/4 ML VIAL IV SCH ×3 (09:25→21:26)
[2020-04-01] MEDS: ENOXAPARIN 40 MG/0.4 ML SYRINGE SUBCUT SCH ×2 (09:25→21:26)
[2020-04-01] MEDS: amLODIPine 5 MG TABLET PO SCH (09:25)
[2020-04-01] MEDS: PANTOPRAZOLE 40 MG VIAL IV SCH (09:26)
[2020-04-02] MEDS: INSULIN LISPRO 100 UNIT/ML SUBCUT SCH ×4 (01:12→17:56)
[2020-04-02] MEDS: methylPREDNISolone SOD SUC 40 MG/1 ML VIAL IV SCH ×3 (01:12→17:55)
[2020-04-02 05:16] LABS: Basophils % 0.2 % (0.0-0.8); Immature Granulocytes % 3.9 %; Immature Granulocytes Absolute 0.73 #; Lymphocytes # 0.4 10*3/uL (1.4-4.0); Lymphocytes % 2.2 % (21.3-54.2); Mean Corpuscular HGB Conc 28.8 GM/DL (32-36); Mean Corpuscular Volume 88.1 FL (87-102); Mean Platelet Volume 11.8 FL (9.6-12.0); Monocytes % 3.8 % (1.7-12.7); NRBC # 0.03 10*3/uL; Neutrophils % 89.9 % (38.7-73.9); Platelet Count 235 T/CUMM (130-400); Red Blood Count 4.29 MC/CUMM (3.8-5.5); Red Cell Distribution Width 16.2 % (9.3-17.3); White Blood Count 18.8 T/CUMM (4-12)
[2020-04-02 05:31] LABS: Calcium 8.9 MG/DL (8.5-10.1); Osmolality,Calculated 283.8 MOS/KG (273-304)
[2020-04-02 05:42] LABS: Hematocrit 37.7 VOL% (35.7-47.0)
[2020-04-02 05:43] LABS: Hemoglobin 10.9 GM/DL (12.0-16.0)
[2020-04-02 06:00] LABS: Band Neutrophils 1 % (0-10); Hypochromasia 1+; Lymphocytes 3 % (20-55); Microcytosis 1+; Platelet Estimate Normal; Segmented Neutrophils 92 % (50-85); Total Cells Counted 100
[2020-04-02] MEDS: PANTOPRAZOLE 40 MG VIAL IV SCH (08:36)
[2020-04-02] MEDS: amLODIPine 5 MG TABLET PO SCH (08:36)
[2020-04-02] MEDS: ZINC SULFATE 220 MG CAPSULE PO SCH (08:36)
[2020-04-02] MEDS: ENOXAPARIN 40 MG/0.4 ML SYRINGE SUBCUT SCH ×2 (08:40→21:48)
[2020-04-02] MEDS: FUROSEMIDE 40 MG/4 ML VIAL IV SCH ×2 (08:40→15:51)
[2020-04-03] MEDS: INSULIN LISPRO 100 UNIT/ML SUBCUT SCH ×5 (03:02→23:32)
[2020-04-03] MEDS: methylPREDNISolone SOD SUC 40 MG/1 ML VIAL IV SCH ×3 (03:02→17:55)
[2020-04-03 04:18] LABS: Allen Test Positive; Pt O2 Delivery Device Ventilator
[2020-04-03 04:19] LABS: ABG Base Excess 11.6 MMOL/L (-2.5-2.5); ABG HCO3 35.1 MMOL/L (20-26); ABG Oxygen Saturation 94.9 % (95-100); ABG PCO2 41.3 MM HG (35-48); ABG PH 7.547 (7.35-7.45); ABG TCO2 36.4 MMOL/L (23-27)
[2020-04-03 07:36] LABS: Basophils % 0.2 % (0.0-0.8); Hematocrit 31.4 VOL% (35.7-47.0); Hemoglobin 9.6 GM/DL (12.0-16.0); Immature Granulocytes % 3.4 %; Immature Granulocytes Absolute 0.45 #; Lymphocytes # 0.4 10*3/uL (1.4-4.0); Lymphocytes % 3.1 % (21.3-54.2); Mean Corpuscular HGB Conc 30.6 GM/DL (32-36); Mean Corpuscular Volume 85.1 FL (87-102); Monocytes % 5.4 % (1.7-12.7); Neutrophils % 87.9 % (38.7-73.9); Platelet Count 224 T/CUMM (130-400); Red Blood Count 3.69 MC/CUMM (3.8-5.5); Red Cell Distribution Width 16.1 % (9.3-17.3); White Blood Count 13.2 T/CUMM (4-12)
[2020-04-03 07:44] LABS: Calcium 8.6 MG/DL (8.5-10.1); Hypochromasia 1+; Osmolality,Calculated 281.7 MOS/KG (273-304); Platelet Estimate Adequate
[2020-04-03 07:46] LABS: Lymphocytes 1 % (20-55); Microcytosis Slight; Ovalocytes Slight; Segmented Neutrophils 92 % (50-85); Total Cells Counted 100
[2020-04-03] MEDS: amLODIPine 5 MG TABLET PO SCH (08:25)
[2020-04-03] MEDS: PANTOPRAZOLE 40 MG VIAL IV SCH (08:25)
[2020-04-03] MEDS: ENOXAPARIN 40 MG/0.4 ML SYRINGE SUBCUT SCH ×2 (08:39→22:49)
[2020-04-03] MEDS ORDERED: FUROSEMIDE 40 MG/4 ML VIAL IV ONE (14:28)
[2020-04-04] MEDS: methylPREDNISolone SOD SUC 40 MG/1 ML VIAL IV SCH ×3 (01:12→21:06)
[2020-04-04 05:15] LABS: ABG Base Excess 11.5 MMOL/L (-2.5-2.5); ABG HCO3 35.7 MMOL/L (20-26); ABG Oxygen Saturation 90.8 % (95-100); ABG PCO2 45.8 MM HG (35-48); ABG PO2 59.4 MM HG (80-95); ABG TCO2 37.1 MMOL/L (23-27)
[2020-04-04] MEDS: INSULIN LISPRO 100 UNIT/ML SUBCUT SCH ×3 (06:19→18:52)
[2020-04-04 07:16] LABS: Basophils % 0.1 % (0.0-0.8); Hematocrit 32.2 VOL% (35.7-47.0); Hemoglobin 9.7 GM/DL (12.0-16.0); Immature Granulocytes % 2.9 %; Lymphocytes # 0.2 10*3/uL (1.4-4.0); Lymphocytes % 1.1 % (21.3-54.2); Mean Corpuscular HGB Conc 30.1 GM/DL (32-36); Monocytes % 3.2 % (1.7-12.7); Neutrophils % 92.7 % (38.7-73.9); Platelet Count 212 T/CUMM (130-400); Red Blood Count 3.79 MC/CUMM (3.8-5.5); Red Cell Distribution Width 16.4 % (9.3-17.3)
[2020-04-04 07:27] LABS: Band Neutrophils 1 % (0-10); Hypochromasia 2+; Lymphocytes 2 % (20-55); Ovalocytes Slight; Platelet Estimate Adequate; Segmented Neutrophils 95 % (50-85); Total Cells Counted 100
[2020-04-04 07:28] LABS: Microcytosis Slight
[2020-04-04] MEDS: PANTOPRAZOLE 40 MG VIAL IV SCH (08:24)
[2020-04-04] MEDS: amLODIPine 5 MG TABLET PO SCH (08:24)
[2020-04-04] MEDS: ENOXAPARIN 40 MG/0.4 ML SYRINGE SUBCUT SCH ×2 (08:30→21:06)
[2020-04-04] MEDS: FUROSEMIDE 40 MG/4 ML VIAL IV SCH (17:22)
[2020-04-04 18:17] LABS: Osmolality,Calculated 283.7 MOS/KG (273-304)
[2020-04-04] MEDS: ACETAMINOPHEN 325 MG/10.15 ML UDCUP PO PRN (20:45)
[2020-04-05] MEDS: INSULIN LISPRO 100 UNIT/ML SUBCUT SCH ×5 (00:33→23:56)
[2020-04-05 04:55] LABS: ABG Base Excess 10.2 MMOL/L (-2.5-2.5); ABG HCO3 34.1 MMOL/L (20-26); ABG Oxygen Saturation 94.3 % (95-100); ABG PCO2 42.7 MM HG (35-48); ABG PO2 71.7 MM HG (80-95); ABG TCO2 35.4 MMOL/L (23-27); Allen Test Positive; Pt O2 Delivery Device Ventilator
[2020-04-05 05:50] LABS: Basophils % 0.1 % (0.0-0.8); Hematocrit 33.1 VOL% (35.7-47.0); Hemoglobin 9.7 GM/DL (12.0-16.0); Immature Granulocytes % 1.2 %; Immature Granulocytes Absolute 0.21 #; Lymphocytes # 0.2 10*3/uL (1.4-4.0); Lymphocytes % 1.2 % (21.3-54.2); Mean Corpuscular HGB Conc 29.3 GM/DL (32-36); Mean Corpuscular Volume 87.1 FL (87-102); Mean Platelet Volume 11.2 FL (9.6-12.0); Monocytes % 2.4 % (1.7-12.7); Neutrophils % 95.1 % (38.7-73.9); Platelet Count 204 T/CUMM (130-400); White Blood Count 16.9 T/CUMM (4-12)
[2020-04-05 06:13] LABS: Calcium 8.6 MG/DL (8.5-10.1); Osmolality,Calculated 281.7 MOS/KG (273-304)
[2020-04-05 06:15] LABS: Band Neutrophils 1 % (0-10); Lymphocytes 1 % (20-55); Platelet Estimate Adequate; Segmented Neutrophils 97 % (50-85); Total Cells Counted 100
[2020-04-05 06:16] LABS: Hypochromasia 2+; Microcytosis Slight; Ovalocytes Slight
[2020-04-05] MEDS: FUROSEMIDE 40 MG/4 ML VIAL IV SCH ×2 (08:41→15:31)
[2020-04-05] MEDS: PANTOPRAZOLE 40 MG VIAL IV SCH (08:42)
[2020-04-05] MEDS: amLODIPine 5 MG TABLET PO SCH (08:43)
[2020-04-05] MEDS: methylPREDNISolone SOD SUC 40 MG/1 ML VIAL IV SCH (08:43)
[2020-04-05] MEDS: ENOXAPARIN 40 MG/0.4 ML SYRINGE SUBCUT SCH ×2 (08:44→21:02)
[2020-04-05] MEDS: POTASSIUM CHLORIDE 20 MEQ/15 ML UDCUP PER TUBE SCH ×2 (08:47→12:04)
[2020-04-05] MEDS: MEROPENEM 500 MG in SODIUM CHLORIDE 0.9% 100 ML IV SCH ×3 (09:01→21:34)
[2020-04-06] MEDS: MEROPENEM 500 MG in SODIUM CHLORIDE 0.9% 100 ML IV SCH ×4 (02:30→20:17)
[2020-04-06 04:48] LABS: Allen Test Positive; Pt O2 Delivery Device Ventilator
[2020-04-06 04:49] LABS: ABG Base Excess 9.8 MMOL/L (-2.5-2.5); ABG HCO3 33.5 MMOL/L (20-26); ABG Oxygen Saturation 95.8 % (95-100); ABG PO2 78.6 MM HG (80-95); ABG TCO2 34.8 MMOL/L (23-27)
[2020-04-06] MEDS: INSULIN LISPRO 100 UNIT/ML SUBCUT SCH ×4 (05:24→23:49)
[2020-04-06] MEDS: POTASSIUM CHLORIDE 20 MEQ/15 ML UDCUP PER TUBE SCH (08:39)
[2020-04-06] MEDS: PANTOPRAZOLE 40 MG VIAL IV SCH (08:39)
[2020-04-06] MEDS: amLODIPine 5 MG TABLET PO SCH (08:41)
[2020-04-06] MEDS: ENOXAPARIN 40 MG/0.4 ML SYRINGE SUBCUT SCH ×2 (08:46→21:22)
[2020-04-06] MEDS ORDERED: methylPREDNISolone SOD SUC 40 MG/1 ML VIAL IV SCH (09:00)
[2020-04-06 14:23] LABS: Basophils % 0.1 % (0.0-0.8); Eosinophils % 0.1 % (0.00-10.9); Hematocrit 35.7 VOL% (35.7-47.0); Hemoglobin 10.7 GM/DL (12.0-16.0); Immature Granulocytes % 1.3 %; Immature Granulocytes Absolute 0.18 #; Lymphocytes # 0.2 10*3/uL (1.4-4.0); Lymphocytes % 1.6 % (21.3-54.2); Mean Corpuscular Volume 86.9 FL (87-102); Mean Platelet Volume 11.8 FL (9.6-12.0); Monocytes % 2.6 % (1.7-12.7); Neutrophils % 94.3 % (38.7-73.9); Platelet Count 189 T/CUMM (130-400); Red Blood Count 4.11 MC/CUMM (3.8-5.5); Red Cell Distribution Width 16.9 % (9.3-17.3); White Blood Count 14.1 T/CUMM (4-12)
[2020-04-06 14:26] LABS: Osmolality,Calculated 291.1 MOS/KG (273-304)
[2020-04-06 14:55] LABS: Platelet Estimate Adequate; Polychromasia Slight; Segmented Neutrophils 98 % (50-85); Total Cells Counted 100
[2020-04-06] MEDS ORDERED: fentaNYL INJ 1,250 MCG in SODIUM CHLORIDE 0.9% 225 ML IV PRN (21:54)
[2020-04-06] MEDS ORDERED: LORazepam 2 MG/1 ML VIAL IV PRN (21:55)
[2020-04-07 04:10] LABS: ABG Base Excess 5.7 MMOL/L (-2.5-2.5); ABG HCO3 29.5 MMOL/L (20-26); ABG Oxygen Saturation 96.3 % (95-100); ABG PCO2 46.1 MM HG (35-48); ABG PH 7.431 (7.35-7.45); ABG PO2 79.5 MM HG (80-95); ABG TCO2 28.3 MMOL/L (23-27)
[2020-04-07] MEDS: MEROPENEM 500 MG in SODIUM CHLORIDE 0.9% 100 ML IV SCH ×4 (04:15→21:00)
[2020-04-07] MEDS: INSULIN LISPRO 100 UNIT/ML SUBCUT SCH ×3 (06:00→19:10)
[2020-04-07 07:28] LABS: Calcium 8.2 MG/DL (8.5-10.1); Osmolality,Calculated 289.8 MOS/KG (273-304)
[2020-04-07 07:35] LABS: Eosinophils # 0.1 10*3/uL (0.0-0.87); Eosinophils % 1.1 % (0.00-10.9); Hematocrit 30.7 VOL% (35.7-47.0); Hemoglobin 8.8 GM/DL (12.0-16.0); Immature Granulocytes % 1.1 %; Immature Granulocytes Absolute 0.08 #; Lymphocytes # 0.5 10*3/uL (1.4-4.0); Lymphocytes % 6.4 % (21.3-54.2); Mean Corpuscular HGB Conc 28.7 GM/DL (32-36); Mean Corpuscular Volume 89.2 FL (87-102); Mean Platelet Volume 12.2 FL (9.6-12.0); Monocytes % 6.5 % (1.7-12.7); Neutrophils % 84.9 % (38.7-73.9); Platelet Count 198 T/CUMM (130-400); Red Blood Count 3.44 MC/CUMM (3.8-5.5); Red Cell Distribution Width 17.1 % (9.3-17.3); White Blood Count 7.1 T/CUMM (4-12)
[2020-04-07 07:58] LABS: Hypochromasia 1+; Microcytosis 1+; Polychromasia Slight
[2020-04-07 07:59] LABS: Platelet Estimate Adequate
[2020-04-07] MEDS ORDERED: FUROSEMIDE 40 MG/4 ML VIAL IV ONE (09:32)
[2020-04-07] MEDS: amLODIPine 5 MG TABLET PO SCH (10:23)
[2020-04-07] MEDS: POTASSIUM CHLORIDE 20 MEQ/15 ML UDCUP PER TUBE SCH ×3 (10:23→16:07)
[2020-04-07] MEDS: PANTOPRAZOLE 40 MG VIAL IV SCH (10:23)
[2020-04-07] MEDS: ENOXAPARIN 40 MG/0.4 ML SYRINGE SUBCUT SCH ×2 (10:29→21:51)
[2020-04-07] MEDS: DEXMEDETOMIDINE 200 MCG in SODIUM CHLORIDE 0.9% 48 ML IV PRN ×4 (14:23→21:57)
[2020-04-07] MEDS: SCOPOLAMINE 1.5 MG PATCH TRANSDERM SCH (14:30)
[2020-04-07] MEDS ORDERED: DEXMEDETOMIDINE 400 MCG in SODIUM CHLORIDE 0.9% 96 ML IV PRN (16:35)
[2020-04-08] MEDS: INSULIN LISPRO 100 UNIT/ML SUBCUT SCH ×4 (00:52→17:37)
[2020-04-08] MEDS: MEROPENEM 500 MG in SODIUM CHLORIDE 0.9% 100 ML IV SCH ×4 (03:20→21:30)
[2020-04-08 03:50] LABS: ABG Base Excess 3.1 MMOL/L (-2.5-2.5); ABG HCO3 28.2 MMOL/L (20-26); ABG Oxygen Saturation 98.8 % (95-100); ABG PCO2 45.3 MM HG (35-48); ABG PH 7.412 (7.35-7.45); ABG TCO2 29.6 MMOL/L (23-27)
[2020-04-08] MEDS: amLODIPine 5 MG TABLET PO SCH (08:24)
[2020-04-08] MEDS: PANTOPRAZOLE 40 MG VIAL IV SCH (08:28)
[2020-04-08] MEDS: POTASSIUM CHLORIDE 20 MEQ/15 ML UDCUP PER TUBE SCH (08:29)
[2020-04-08] MEDS: ENOXAPARIN 40 MG/0.4 ML SYRINGE SUBCUT SCH ×2 (08:30→20:52)
[2020-04-08 08:31] LABS: Eosinophils # 0.3 10*3/uL (0.0-0.87); Eosinophils % 4.2 % (0.00-10.9); Hemoglobin 9.4 GM/DL (12.0-16.0); Immature Granulocytes % 1.1 %; Immature Granulocytes Absolute 0.08 #; Lymphocytes # 0.7 10*3/uL (1.4-4.0); Lymphocytes % 9.9 % (21.3-54.2); Mean Corpuscular HGB Conc 29.4 GM/DL (32-36); Mean Corpuscular Volume 88.2 FL (87-102); Mean Platelet Volume 11.7 FL (9.6-12.0); Monocytes % 5.6 % (1.7-12.7); Neutrophils % 79.2 % (38.7-73.9); Platelet Count 196 T/CUMM (130-400); Red Blood Count 3.63 MC/CUMM (3.8-5.5); Red Cell Distribution Width 16.7 % (9.3-17.3); White Blood Count 7.4 T/CUMM (4-12)
[2020-04-09] MEDS: INSULIN LISPRO 100 UNIT/ML SUBCUT SCH ×4 (00:34→17:45)
[2020-04-09] MEDS: MEROPENEM 500 MG in SODIUM CHLORIDE 0.9% 100 ML IV SCH ×4 (02:40→20:48)
[2020-04-09 04:30] LABS: ABG Base Excess 2.3 MMOL/L (-2.5-2.5); ABG HCO3 27.3 MMOL/L (20-26); ABG Oxygen Saturation 97.8 % (95-100); ABG PCO2 44.3 MM HG (35-48); ABG PH 7.408 (7.35-7.45); ABG PO2 103.1 MM HG (80-95); ABG TCO2 28.7 MMOL/L (23-27); Allen Test Positive; Pt O2 Delivery Device Ventilator
[2020-04-09 10:15] LABS: Calcium 8.7 MG/DL (8.5-10.1); Osmolality,Calculated 276.7 MOS/KG (273-304)
[2020-04-09] MEDS: amLODIPine 5 MG TABLET PO SCH (10:17)
[2020-04-09] MEDS: POTASSIUM CHLORIDE 20 MEQ/15 ML UDCUP PER TUBE SCH (10:18)
[2020-04-09] MEDS: PANTOPRAZOLE 40 MG VIAL IV SCH (10:18)
[2020-04-09] MEDS: ENOXAPARIN 40 MG/0.4 ML SYRINGE SUBCUT SCH ×2 (10:19→20:46)
[2020-04-09 10:22] LABS: Eosinophils # 0.3 10*3/uL (0.0-0.87); Eosinophils % 4.1 % (0.00-10.9); Hematocrit 34.2 VOL% (35.7-47.0); Immature Granulocytes % 1.1 %; Immature Granulocytes Absolute 0.08 #; Lymphocytes # 0.6 10*3/uL (1.4-4.0); Lymphocytes % 8.4 % (21.3-54.2); Mean Corpuscular HGB Conc 28.7 GM/DL (32-36); Mean Corpuscular Volume 90.5 FL (87-102); Mean Platelet Volume 11.4 FL (9.6-12.0); Monocytes % 5.4 % (1.7-12.7); Platelet Count 173 T/CUMM (130-400); Red Blood Count 3.78 MC/CUMM (3.8-5.5); Red Cell Distribution Width 16.9 % (9.3-17.3)
[2020-04-09 10:23] LABS: Hemoglobin 9.8 GM/DL (12.0-16.0)
[2020-04-10] MEDS: INSULIN LISPRO 100 UNIT/ML SUBCUT SCH ×4 (00:35→17:29)
[2020-04-10] MEDS: MEROPENEM 500 MG in SODIUM CHLORIDE 0.9% 100 ML IV SCH ×2 (02:44→09:08)
[2020-04-10 04:45] LABS: ABG Base Excess 1.9 MMOL/L (-2.5-2.5); ABG HCO3 26.1 MMOL/L (20-26); ABG Oxygen Saturation 95.2 % (95-100); ABG PO2 75.6 MM HG (80-95); ABG TCO2 25.5 MMOL/L (23-27); Allen Test Positive; Pt O2 Delivery Device Ventilator
[2020-04-10 06:35] LABS: Basophils % 0.2 % (0.0-0.8); Eosinophils # 0.3 10*3/uL (0.0-0.87); Eosinophils % 4.7 % (0.00-10.9); Hematocrit 33.6 VOL% (35.7-47.0); Immature Granulocytes % 1.3 %; Immature Granulocytes Absolute 0.08 #; Lymphocytes # 0.6 10*3/uL (1.4-4.0); Lymphocytes % 9.2 % (21.3-54.2); Mean Corpuscular HGB Conc 28.3 GM/DL (32-36); Mean Corpuscular Volume 92.3 FL (87-102); Mean Platelet Volume 11.2 FL (9.6-12.0); Monocytes % 4.8 % (1.7-12.7); Neutrophils % 79.8 % (38.7-73.9); Platelet Count 173 T/CUMM (130-400); Red Blood Count 3.64 MC/CUMM (3.8-5.5); Red Cell Distribution Width 17.1 % (9.3-17.3); White Blood Count 6.2 T/CUMM (4-12)
[2020-04-10 06:37] LABS: Hemoglobin 9.5 GM/DL (12.0-16.0)
[2020-04-10 06:45] LABS: Calcium 8.4 MG/DL (8.5-10.1)
[2020-04-10 06:54] LABS: Hypochromasia 1+; Microcytosis Slight; Platelet Estimate Adequate
[2020-04-10] MEDS: POTASSIUM CHLORIDE 20 MEQ/15 ML UDCUP PER TUBE SCH (09:09)
[2020-04-10] MEDS: PANTOPRAZOLE 40 MG VIAL IV SCH (09:09)
[2020-04-10] MEDS: SCOPOLAMINE 1.5 MG PATCH TRANSDERM SCH (09:10)
[2020-04-10] MEDS: ENOXAPARIN 40 MG/0.4 ML SYRINGE SUBCUT SCH ×2 (09:10→20:41)
[2020-04-11] MEDS: INSULIN LISPRO 100 UNIT/ML SUBCUT SCH ×4 (01:11→18:06)
[2020-04-11 04:47] LABS: ABG Base Excess 3.5 MMOL/L (-2.5-2.5); ABG HCO3 27.5 MMOL/L (20-26); ABG Oxygen Saturation 95.3 % (95-100); ABG PCO2 40.9 MM HG (35-48); ABG PH 7.442 (7.35-7.45); ABG PO2 71.5 MM HG (80-95); ABG TCO2 25.7 MMOL/L (23-27); Allen Test Positive; Pt O2 Delivery Device Ventilator
[2020-04-11 05:10] LABS: Basophils % 0.1 % (0.0-0.8); Eosinophils # 0.3 10*3/uL (0.0-0.87); Eosinophils % 3.6 % (0.00-10.9); Hematocrit 30.4 VOL% (35.7-47.0); Hemoglobin 8.8 GM/DL (12.0-16.0); Immature Granulocytes Absolute 0.09 #; Lymphocytes # 0.4 10*3/uL (1.4-4.0); Lymphocytes % 4.8 % (21.3-54.2); Mean Corpuscular HGB Conc 28.9 GM/DL (32-36); Mean Corpuscular Volume 89.1 FL (87-102); Mean Platelet Volume 11.2 FL (9.6-12.0); Monocytes % 4.2 % (1.7-12.7); Neutrophils % 86.3 % (38.7-73.9); Platelet Count 174 T/CUMM (130-400); Red Blood Count 3.41 MC/CUMM (3.8-5.5); White Blood Count 8.7 T/CUMM (4-12)
[2020-04-11 05:31] LABS: Eosinophils 4 % (0-10); Lymphocytes 10 % (20-55); Segmented Neutrophils 85 % (50-85); Total Cells Counted 100
[2020-04-11 05:32] LABS: Hypochromasia 1+; Microcytosis Slight; Platelet Estimate Adequate
[2020-04-11] MEDS: PANTOPRAZOLE 40 MG VIAL IV SCH (08:47)
[2020-04-11] MEDS: ENOXAPARIN 40 MG/0.4 ML SYRINGE SUBCUT SCH ×2 (08:47→20:37)
[2020-04-11] MEDS: POTASSIUM CHLORIDE 20 MEQ/15 ML UDCUP PER TUBE SCH (08:47)
[2020-04-11] MEDS ORDERED: FUROSEMIDE 40 MG/4 ML VIAL IV SCH (09:00)
[2020-04-11] MEDS: fentaNYL INJ 1,250 MCG in SODIUM CHLORIDE 0.9% 225 ML IV PRN ×3 (10:44→22:02)
[2020-04-11] MEDS: MEROPENEM 500 MG in SODIUM CHLORIDE 0.9% 100 ML IV SCH ×3 (11:14→22:38)
[2020-04-11] MEDS: VANCOMYCIN INJ 2,500 MG in SODIUM CHLORIDE 0.9% 500 ML IV SCH (14:13)
[2020-04-11] MEDS: methylPREDNISolone SOD SUC 40 MG/1 ML VIAL IV SCH ×2 (15:30→22:37)
[2020-04-11] MEDS: FUROSEMIDE 40 MG/4 ML VIAL IV SCH (17:30)
[2020-04-11] MEDS ORDERED: fentaNYL INJ 2,500 MCG in SODIUM CHLORIDE 0.9% 450 ML IV PRN (22:00)
[2020-04-12] MEDS: INSULIN LISPRO 100 UNIT/ML SUBCUT SCH ×4 (00:11→17:39)
[2020-04-12 03:47] LABS: ABG Base Excess 3.4 MMOL/L (-2.5-2.5); ABG HCO3 27.4 MMOL/L (20-26); ABG Oxygen Saturation 90.7 % (95-100); ABG PCO2 46.5 MM HG (35-48); ABG TCO2 26.5 MMOL/L (23-27)
[2020-04-12] MEDS: MEROPENEM 500 MG in SODIUM CHLORIDE 0.9% 100 ML IV SCH ×4 (04:15→22:22)
[2020-04-12 04:45] LABS: Osmolality,Calculated 281.4 MOS/KG (273-304)
[2020-04-12 05:00] LABS: Basophils % 0.1 % (0.0-0.8); Eosinophils % 0.6 % (0.00-10.9); Hematocrit 34.3 VOL% (35.7-47.0); Immature Granulocytes % 1.2 %; Immature Granulocytes Absolute 0.08 #; Lymphocytes # 0.3 10*3/uL (1.4-4.0); Lymphocytes % 4.9 % (21.3-54.2); Mean Corpuscular HGB Conc 29.4 GM/DL (32-36); Mean Corpuscular Volume 89.3 FL (87-102); Mean Platelet Volume 11.6 FL (9.6-12.0); Monocytes % 2.2 % (1.7-12.7); Platelet Count 166 T/CUMM (130-400); Red Blood Count 3.84 MC/CUMM (3.8-5.5); Red Cell Distribution Width 16.8 % (9.3-17.3); White Blood Count 6.9 T/CUMM (4-12)
[2020-04-12 05:03] LABS: Hemoglobin 10.1 GM/DL (12.0-16.0)
[2020-04-12 05:48] LABS: Band Neutrophils 2 % (0-10); Eosinophils 2 % (0-10); Lymphocytes 3 % (20-55); Segmented Neutrophils 90 % (50-85); Total Cells Counted 100
[2020-04-12 05:49] LABS: Hypochromasia 1+; Microcytosis Slight; Platelet Estimate Adequate
[2020-04-12] MEDS: methylPREDNISolone SOD SUC 40 MG/1 ML VIAL IV SCH ×3 (05:52→22:23)
[2020-04-12] MEDS: POTASSIUM CHLORIDE 20 MEQ/15 ML UDCUP PER TUBE SCH (08:24)
[2020-04-12] MEDS: PANTOPRAZOLE 40 MG VIAL IV SCH (08:26)
[2020-04-12] MEDS: VANCOMYCIN INJ 2,500 MG in SODIUM CHLORIDE 0.9% 500 ML IV SCH (08:29)
[2020-04-12] MEDS: FUROSEMIDE 40 MG/4 ML VIAL IV SCH ×2 (08:29→15:33)
[2020-04-12] MEDS: ENOXAPARIN 40 MG/0.4 ML SYRINGE SUBCUT SCH (08:32)
[2020-04-12] MEDS: POTASSIUM PHOS/SOD PHOS POWDER 250 MG PACK PO SCH (20:33)
[2020-04-12] MEDS: ENOXAPARIN 80 MG/0.8 ML SYRINGE SUBCUT SCH (20:33)
[2020-04-13] MEDS: INSULIN LISPRO 100 UNIT/ML SUBCUT SCH ×4 (00:20→17:20)
[2020-04-13] MEDS: VANCOMYCIN INJ 2,500 MG in SODIUM CHLORIDE 0.9% 500 ML IV SCH (02:30)
[2020-04-13 03:34] LABS: ABG HCO3 32.1 MMOL/L (20-26); ABG Oxygen Saturation 96.9 % (95-100); ABG PCO2 62.3 MM HG (35-48); ABG PO2 97.7 MM HG (80-95); Allen Test Positive; Pt O2 Delivery Device Ventilator
[2020-04-13 04:04] LABS: Basophils % 0.2 % (0.0-0.8); Eosinophils % 0.4 % (0.00-10.9); Hematocrit 30.6 VOL% (35.7-47.0); Immature Granulocytes % 1.8 %; Lymphocytes # 0.3 10*3/uL (1.4-4.0); Lymphocytes % 5.7 % (21.3-54.2); Mean Corpuscular HGB Conc 28.4 GM/DL (32-36); Mean Corpuscular Volume 89.7 FL (87-102); Mean Platelet Volume 11.2 FL (9.6-12.0); Monocytes % 3.4 % (1.7-12.7); Neutrophils % 88.5 % (38.7-73.9); Platelet Count 161 T/CUMM (130-400); Red Blood Count 3.41 MC/CUMM (3.8-5.5); Red Cell Distribution Width 16.3 % (9.3-17.3); White Blood Count 5.6 T/CUMM (4-12)
[2020-04-13 04:29] LABS: Calcium 8.9 MG/DL (8.5-10.1); Osmolality,Calculated 281.5 MOS/KG (273-304)
[2020-04-13 04:45] LABS: Hemoglobin 8.7 GM/DL (12.0-16.0)
[2020-04-13 04:52] LABS: Anisocytosis 1+
[2020-04-13 04:53] LABS: Platelet Estimate Normal
[2020-04-13] MEDS: methylPREDNISolone SOD SUC 40 MG/1 ML VIAL IV SCH ×2 (05:05→17:37)
[2020-04-13] MEDS: MEROPENEM 500 MG in SODIUM CHLORIDE 0.9% 100 ML IV SCH ×4 (05:51→22:38)
[2020-04-13] MEDS: ENOXAPARIN 80 MG/0.8 ML SYRINGE SUBCUT SCH ×2 (08:45→21:40)
[2020-04-13] MEDS: POTASSIUM PHOS/SOD PHOS POWDER 250 MG PACK PO SCH ×2 (08:45→21:40)
[2020-04-13] MEDS: FUROSEMIDE 40 MG/4 ML VIAL IV SCH ×2 (08:45→15:40)
[2020-04-13] MEDS: POTASSIUM CHLORIDE 20 MEQ/15 ML UDCUP PER TUBE SCH (08:45)
[2020-04-13] MEDS: PANTOPRAZOLE 40 MG VIAL IV SCH (08:47)
[2020-04-13] MEDS: fentaNYL INJ 1,250 MCG in SODIUM CHLORIDE 0.9% 225 ML IV PRN (16:50)
[2020-04-14] MEDS: INSULIN LISPRO 100 UNIT/ML SUBCUT SCH ×4 (00:31→17:28)
[2020-04-14] MEDS: fentaNYL INJ 1,250 MCG in SODIUM CHLORIDE 0.9% 225 ML IV PRN ×2 (00:32→10:42)
[2020-04-14] MEDS: VANCOMYCIN INJ 2,500 MG in SODIUM CHLORIDE 0.9% 500 ML IV SCH ×2 (01:17→17:26)
[2020-04-14] MEDS: MEROPENEM 500 MG in SODIUM CHLORIDE 0.9% 100 ML IV SCH ×4 (06:11→23:16)
[2020-04-14] MEDS: methylPREDNISolone SOD SUC 40 MG/1 ML VIAL IV SCH ×2 (06:11→16:15)
[2020-04-14] MEDS: POTASSIUM CHLORIDE 20 MEQ/15 ML UDCUP PER TUBE SCH (08:47)
[2020-04-14] MEDS: PANTOPRAZOLE 40 MG VIAL IV SCH (08:47)
[2020-04-14] MEDS: FUROSEMIDE 40 MG/4 ML VIAL IV SCH ×2 (08:47→16:24)
[2020-04-14] MEDS: ENOXAPARIN 80 MG/0.8 ML SYRINGE SUBCUT SCH ×2 (08:47→20:42)
[2020-04-14] MEDS: POTASSIUM PHOS/SOD PHOS POWDER 250 MG PACK PO SCH ×2 (08:47→20:42)
[2020-04-14 10:48] LABS: ABG Base Excess 8.8 MMOL/L (-2.5-2.5); ABG HCO3 32.6 MMOL/L (20-26); ABG Oxygen Saturation 97.4 % (95-100); ABG PCO2 50.3 MM HG (35-48); ABG PH 7.442 (7.35-7.45); ABG PO2 87.5 MM HG (80-95); ABG TCO2 31.3 MMOL/L (23-27); Allen Test Positive; Pt O2 Delivery Device Ventilator
[2020-04-14 13:43] LABS: Basophils % 0.4 % (0.0-0.8); Eosinophils # 0.3 10*3/uL (0.0-0.87); Eosinophils % 3.6 % (0.00-10.9); Hematocrit 31.5 VOL% (35.7-47.0); Hemoglobin 9.3 GM/DL (12.0-16.0); Immature Granulocytes % 4.6 %; Immature Granulocytes Absolute 0.32 #; Lymphocytes # 0.9 10*3/uL (1.4-4.0); Lymphocytes % 12.3 % (21.3-54.2); Mean Corpuscular HGB Conc 29.5 GM/DL (32-36); Mean Platelet Volume 10.9 FL (9.6-12.0); Monocytes % 5.6 % (1.7-12.7); NRBC # 0.05 10*3/uL; Neutrophils % 73.5 % (38.7-73.9); Platelet Count 177 T/CUMM (130-400); Red Blood Count 3.58 MC/CUMM (3.8-5.5); Red Cell Distribution Width 16.2 % (9.3-17.3)
[2020-04-14 14:02] LABS: Calcium 8.8 MG/DL (8.5-10.1); Osmolality,Calculated 276.5 MOS/KG (273-304)
[2020-04-14] MEDS ORDERED: MAGNESIUM SULF RIDER 4 GM in PREMIX 1 EACH IV PRN (14:09)
[2020-04-14] MEDS: POTASSIUM CHLORIDE RIDER 20 MEQ in PREMIX 1 EACH IV PRN (15:01)
[2020-04-15] MEDS: INSULIN LISPRO 100 UNIT/ML SUBCUT SCH ×4 (01:01→17:49)
[2020-04-15] MEDS: fentaNYL INJ 1,250 MCG in SODIUM CHLORIDE 0.9% 225 ML IV PRN (02:46)
[2020-04-15 04:36] LABS: ABG Base Excess 10.4 MMOL/L (-2.5-2.5); ABG Oxygen Saturation 98.3 % (95-100); ABG PCO2 54.6 MM HG (35-48); ABG PH 7.437 (7.35-7.45); ABG PO2 123.9 MM HG (80-95); ABG TCO2 37.7 MMOL/L (23-27); Allen Test Positive; Pt O2 Delivery Device Ventilator
[2020-04-15] MEDS: methylPREDNISolone SOD SUC 40 MG/1 ML VIAL IV SCH ×2 (04:48→16:35)
[2020-04-15] MEDS: MEROPENEM 500 MG in SODIUM CHLORIDE 0.9% 100 ML IV SCH ×2 (04:49→12:19)
[2020-04-15 06:34] LABS: Calcium 8.2 MG/DL (8.5-10.1); Osmolality,Calculated 275.7 MOS/KG (273-304)
[2020-04-15] MEDS: FUROSEMIDE 40 MG/4 ML VIAL IV SCH ×2 (08:01→16:35)
[2020-04-15] MEDS: PANTOPRAZOLE 40 MG VIAL IV SCH (08:01)
[2020-04-15] MEDS: ENOXAPARIN 80 MG/0.8 ML SYRINGE SUBCUT SCH ×2 (08:02→21:33)
[2020-04-15] MEDS: POTASSIUM CHLORIDE 20 MEQ/15 ML UDCUP PER TUBE SCH (08:02)
[2020-04-15] MEDS: POTASSIUM PHOS/SOD PHOS POWDER 250 MG PACK PO SCH ×2 (09:24→21:33)
[2020-04-15 10:50] LABS: Basophils % 0.4 % (0.0-0.8); Eosinophils # 0.1 10*3/uL (0.0-0.87); Eosinophils % 2.3 % (0.00-10.9); Hematocrit 29.9 VOL% (35.7-47.0); Hemoglobin 8.7 GM/DL (12.0-16.0); Immature Granulocytes % 5.7 %; Immature Granulocytes Absolute 0.27 #; Lymphocytes # 0.3 10*3/uL (1.4-4.0); Lymphocytes % 6.1 % (21.3-54.2); Mean Corpuscular HGB Conc 29.1 GM/DL (32-36); Mean Corpuscular Volume 89.3 FL (87-102); Mean Platelet Volume 11.6 FL (9.6-12.0); Monocytes % 4.4 % (1.7-12.7); NRBC # 0.06 10*3/uL; Neutrophils % 81.1 % (38.7-73.9); Platelet Count 150 T/CUMM (130-400); Red Blood Count 3.35 MC/CUMM (3.8-5.5); Red Cell Distribution Width 16.1 % (9.3-17.3); White Blood Count 4.7 T/CUMM (4-12)
[2020-04-15 12:10] LABS: Lymphocytes 7 % (20-55); Metamyelocytes 1 %; Segmented Neutrophils 89 % (50-85); Total Cells Counted 100
[2020-04-15 12:11] LABS: Atypical Lymphocytes S; Hypochromasia 3+; Platelet Estimate Adequate; Polychromasia Slight
[2020-04-15] MEDS: VANCOMYCIN INJ 2,500 MG in SODIUM CHLORIDE 0.9% 500 ML IV SCH (12:22)
[2020-04-15] MEDS: POTASSIUM CHLORIDE RIDER 20 MEQ in PREMIX 1 EACH IV PRN (14:50)
[2020-04-15] MEDS ORDERED: POTASSIUM CHLORIDE RIDER 10 MEQ in PREMIX 1 EACH IV PRN (16:36)
[2020-04-16] MEDS: INSULIN LISPRO 100 UNIT/ML SUBCUT SCH ×4 (00:24→17:08)
[2020-04-16 04:49] LABS: ABG Base Excess 10.6 MMOL/L (-2.5-2.5); ABG HCO3 34.2 MMOL/L (20-26); ABG Oxygen Saturation 93.8 % (95-100); ABG PCO2 54.9 MM HG (35-48); ABG PH 7.437 (7.35-7.45); ABG PO2 71.4 MM HG (80-95); ABG TCO2 32.6 MMOL/L (23-27); Allen Test Positive; Pt O2 Delivery Device Ventilator
[2020-04-16 05:25] LABS: Basophils % 0.2 % (0.0-0.8); Eosinophils # 0.1 10*3/uL (0.0-0.87); Eosinophils % 1.6 % (0.00-10.9); Hematocrit 32.2 VOL% (35.7-47.0); Immature Granulocytes % 7.3 %; Immature Granulocytes Absolute 0.32 #; Lymphocytes # 0.2 10*3/uL (1.4-4.0); Lymphocytes % 5.4 % (21.3-54.2); Mean Corpuscular HGB Conc 28.6 GM/DL (32-36); Mean Corpuscular Volume 89.7 FL (87-102); Mean Platelet Volume 10.7 FL (9.6-12.0); Monocytes % 3.9 % (1.7-12.7); NRBC # 0.06 10*3/uL; Neutrophils % 81.6 % (38.7-73.9); Platelet Count 158 T/CUMM (130-400); Red Blood Count 3.59 MC/CUMM (3.8-5.5); Red Cell Distribution Width 16.2 % (9.3-17.3); White Blood Count 4.4 T/CUMM (4-12)
[2020-04-16 05:28] LABS: Hemoglobin 9.2 GM/DL (12.0-16.0)
[2020-04-16 05:31] LABS: Band Neutrophils 3 % (0-10); Calcium 8.6 MG/DL (8.5-10.1); Eosinophils 2 % (0-10); Hypochromasia 1+; Lymphocytes 4 % (20-55); Osmolality,Calculated 273.8 MOS/KG (273-304); Platelet Estimate Adequate; Segmented Neutrophils 88 % (50-85); Total Cells Counted 100
[2020-04-16] MEDS: methylPREDNISolone SOD SUC 40 MG/1 ML VIAL IV SCH ×2 (06:06→16:06)
[2020-04-16] MEDS: POTASSIUM CHLORIDE RIDER 20 MEQ in PREMIX 1 EACH IV PRN (06:28)
[2020-04-16] MEDS: ENOXAPARIN 80 MG/0.8 ML SYRINGE SUBCUT SCH ×2 (08:19→20:47)
[2020-04-16] MEDS: POTASSIUM CHLORIDE 20 MEQ/15 ML UDCUP PER TUBE SCH (08:19)
[2020-04-16] MEDS: FUROSEMIDE 40 MG/4 ML VIAL IV SCH ×2 (08:19→16:06)
[2020-04-16] MEDS: PANTOPRAZOLE 40 MG VIAL IV SCH (08:20)
[2020-04-16] MEDS: POTASSIUM PHOS/SOD PHOS POWDER 250 MG PACK PO SCH ×2 (08:20→20:47)
[2020-04-17] MEDS: INSULIN LISPRO 100 UNIT/ML SUBCUT SCH ×4 (00:32→17:42)
[2020-04-17 04:33] LABS: ABG Base Excess 13.3 MMOL/L (-2.5-2.5); ABG Oxygen Saturation 95.8 % (95-100); ABG PCO2 52.7 MM HG (35-48); ABG PH 7.476 (7.35-7.45); ABG PO2 77.1 MM HG (80-95); ABG TCO2 35.4 MMOL/L (23-27); Allen Test Positive; Pt O2 Delivery Device Ventilator
[2020-04-17 04:52] LABS: Basophils % 0.2 % (0.0-0.8); Eosinophils # 0.1 10*3/uL (0.0-0.87); Hematocrit 33.5 VOL% (35.7-47.0); Immature Granulocytes % 8.1 %; Immature Granulocytes Absolute 0.39 #; Lymphocytes # 0.3 10*3/uL (1.4-4.0); Lymphocytes % 6.7 % (21.3-54.2); Mean Corpuscular HGB Conc 28.4 GM/DL (32-36); Mean Corpuscular Volume 90.1 FL (87-102); Mean Platelet Volume 10.8 FL (9.6-12.0); NRBC # 0.03 10*3/uL; Platelet Count 161 T/CUMM (130-400); Red Blood Count 3.72 MC/CUMM (3.8-5.5); Red Cell Distribution Width 16.3 % (9.3-17.3); White Blood Count 4.8 T/CUMM (4-12)
[2020-04-17 05:08] LABS: Osmolality,Calculated 278.5 MOS/KG (273-304)
[2020-04-17 05:36] LABS: Hemoglobin 9.5 GM/DL (12.0-16.0)
[2020-04-17 05:53] LABS: Band Neutrophils 6 % (0-10); Hypochromasia 1+; Lymphocytes 4 % (20-55); Myelocytes 1 %; Polychromasia Slight; Segmented Neutrophils 83 % (50-85); Total Cells Counted 100
[2020-04-17 05:54] LABS: Microcytosis 1+; Platelet Estimate Adequate
[2020-04-17] MEDS: methylPREDNISolone SOD SUC 40 MG/1 ML VIAL IV SCH (06:16)
[2020-04-17] MEDS: POTASSIUM PHOS/SOD PHOS POWDER 250 MG PACK PO SCH ×2 (08:25→21:52)
[2020-04-17] MEDS: POTASSIUM CHLORIDE 20 MEQ/15 ML UDCUP PER TUBE SCH ×3 (08:25→11:58)
[2020-04-17] MEDS: ENOXAPARIN 80 MG/0.8 ML SYRINGE SUBCUT SCH ×2 (08:25→21:52)
[2020-04-17] MEDS: FUROSEMIDE 40 MG/4 ML VIAL IV SCH (08:27)
[2020-04-17] MEDS: PANTOPRAZOLE 40 MG VIAL IV SCH (08:27)
[2020-04-18] MEDS: INSULIN LISPRO 100 UNIT/ML SUBCUT SCH ×4 (01:20→18:07)
[2020-04-18 04:06] LABS: ABG Base Excess 13.1 MMOL/L (-2.5-2.5); ABG HCO3 37.7 MMOL/L (20-26); ABG Oxygen Saturation 96.3 % (95-100); ABG PCO2 48.7 MM HG (35-48); ABG PH 7.507 (7.35-7.45); ABG PO2 83.8 MM HG (80-95); ABG TCO2 39.2 MMOL/L (23-27); Allen Test Positive; Pt O2 Delivery Device Ventilator
[2020-04-18 06:16] LABS: Calcium 8.4 MG/DL (8.5-10.1); Osmolality,Calculated 277.5 MOS/KG (273-304)
[2020-04-18 06:46] LABS: Basophils % 0.4 % (0.0-0.8); Eosinophils # 0.2 10*3/uL (0.0-0.87); Eosinophils % 4.3 % (0.00-10.9); Hematocrit 34.7 VOL% (35.7-47.0); Hemoglobin 9.7 GM/DL (12.0-16.0); Immature Granulocytes % 6.8 %; Immature Granulocytes Absolute 0.38 #; Lymphocytes # 0.9 10*3/uL (1.4-4.0); Lymphocytes % 15.2 % (21.3-54.2); Mean Platelet Volume 11.5 FL (9.6-12.0); Monocytes % 7.3 % (1.7-12.7); NRBC # 0.03 10*3/uL; Platelet Count 173 T/CUMM (130-400); Red Blood Count 3.77 MC/CUMM (3.8-5.5); Red Cell Distribution Width 16.4 % (9.3-17.3); White Blood Count 5.6 T/CUMM (4-12)
[2020-04-18 06:49] LABS: Band Neutrophils 1 % (0-10); Eosinophils 4 % (0-10); Lymphocytes 19 % (20-55); Platelet Estimate Adequate; Segmented Neutrophils 71 % (50-85); Total Cells Counted 100
[2020-04-18 06:50] LABS: Hypochromasia 1+; Microcytosis 1+
[2020-04-18] MEDS: POTASSIUM CHLORIDE RIDER 20 MEQ in PREMIX 1 EACH IV PRN ×4 (06:50→17:35)
[2020-04-18] MEDS: POTASSIUM PHOS/SOD PHOS POWDER 250 MG PACK PO SCH ×2 (08:32→20:12)
[2020-04-18] MEDS: ENOXAPARIN 80 MG/0.8 ML SYRINGE SUBCUT SCH ×2 (08:32→20:12)
[2020-04-18] MEDS: FUROSEMIDE 40 MG/4 ML VIAL IV SCH (08:32)
[2020-04-18] MEDS: methylPREDNISolone SOD SUC 40 MG/1 ML VIAL IV SCH (08:35)
[2020-04-18] MEDS: PANTOPRAZOLE 40 MG VIAL IV SCH (08:35)
[2020-04-18] MEDS ORDERED: POTASSIUM CHLORIDE 20 MEQ/15 ML UDCUP PER TUBE SCH (09:00)
[2020-04-18] MEDS: ACETAMINOPHEN 325 MG/10.15 ML UDCUP PO PRN (11:40)
[2020-04-18 18:06] VITALS: BP 92/58
[2020-04-19] MEDS: INSULIN LISPRO 100 UNIT/ML SUBCUT SCH ×4 (00:06→17:13)
[2020-04-19 04:52] LABS: ABG Base Excess 11.1 MMOL/L (-2.5-2.5); ABG HCO3 34.9 MMOL/L (20-26); ABG Oxygen Saturation 97.5 % (95-100); ABG PCO2 52.7 MM HG (35-48); ABG PH 7.453 (7.35-7.45); ABG PO2 89.9 MM HG (80-95); ABG TCO2 33.6 MMOL/L (23-27); Allen Test Positive; Pt O2 Delivery Device Ventilator
[2020-04-19 06:28] LABS: Basophils # 0.1 10*3/uL (0.0-0.2); Basophils % 0.7 % (0.0-0.8); Eosinophils # 0.3 10*3/uL (0.0-0.87); Eosinophils % 3.9 % (0.00-10.9); Hematocrit 32.1 VOL% (35.7-47.0); Immature Granulocytes % 6.1 %; Immature Granulocytes Absolute 0.42 #; Lymphocytes # 1.4 10*3/uL (1.4-4.0); Lymphocytes % 19.6 % (21.3-54.2); Mean Corpuscular HGB Conc 28.7 GM/DL (32-36); Mean Corpuscular Volume 89.4 FL (87-102); Mean Platelet Volume 11.6 FL (9.6-12.0); Monocytes % 7.5 % (1.7-12.7); NRBC # 0.02 10*3/uL; Neutrophils % 62.2 % (38.7-73.9); Platelet Count 190 T/CUMM (130-400); Red Blood Count 3.59 MC/CUMM (3.8-5.5); Red Cell Distribution Width 16.2 % (9.3-17.3); White Blood Count 6.9 T/CUMM (4-12)
[2020-04-19 06:31] LABS: Hemoglobin 9.2 GM/DL (12.0-16.0)
[2020-04-19 06:34] LABS: Band Neutrophils 1 % (0-10); Eosinophils 2 % (0-10); Hypochromasia 1+; Lymphocytes 13 % (20-55); Microcytosis Slight; Ovalocytes Slight; Platelet Estimate Adequate; Segmented Neutrophils 73 % (50-85); Total Cells Counted 100
[2020-04-19 06:44] LABS: Calcium 8.5 MG/DL (8.5-10.1); Osmolality,Calculated 276.5 MOS/KG (273-304)
[2020-04-19 06:46] LABS: Prealbumin 14.9 MG/DL (20-40)
[2020-04-19] MEDS: FUROSEMIDE 40 MG/4 ML VIAL IV SCH (08:40)
[2020-04-19] MEDS: POTASSIUM CHLORIDE RIDER 20 MEQ in PREMIX 1 EACH IV PRN (08:41)
[2020-04-19] MEDS: ENOXAPARIN 80 MG/0.8 ML SYRINGE SUBCUT SCH ×2 (08:41→19:59)
[2020-04-19] MEDS: methylPREDNISolone SOD SUC 40 MG/1 ML VIAL IV SCH (08:42)
[2020-04-19] MEDS: POTASSIUM PHOS/SOD PHOS POWDER 250 MG PACK PO SCH ×2 (08:42→19:59)
[2020-04-19] MEDS: PANTOPRAZOLE 40 MG VIAL IV SCH (08:43)
[2020-04-19] MEDS: POTASSIUM CHLORIDE 20 MEQ/15 ML UDCUP PER TUBE SCH ×3 (09:16→19:59)
[2020-04-19] MEDS: CHOLESTYRAMINE 4 GM PACK PO SCH ×2 (14:37→19:59)
[2020-04-20] MEDS: INSULIN LISPRO 100 UNIT/ML SUBCUT SCH ×5 (00:23→23:50)
[2020-04-20] MEDS: POTASSIUM CHLORIDE 20 MEQ/15 ML UDCUP PER TUBE SCH ×4 (03:08→21:36)
[2020-04-20 04:57] LABS: ABG Base Excess 7.2 MMOL/L (-2.5-2.5); ABG Oxygen Saturation 94.1 % (95-100); ABG PH 7.412 (7.35-7.45); ABG PO2 71.9 MM HG (80-95); ABG TCO2 30.2 MMOL/L (23-27); Allen Test Positive; Pt O2 Delivery Device Ventilator
[2020-04-20 06:20] LABS: Calcium 8.9 MG/DL (8.5-10.1); Osmolality,Calculated 276.5 MOS/KG (273-304)
[2020-04-20 06:46] LABS: Basophils # 0.1 10*3/uL (0.0-0.2); Basophils % 0.7 % (0.0-0.8); Eosinophils # 0.2 10*3/uL (0.0-0.87); Eosinophils % 2.5 % (0.00-10.9); Hematocrit 33.2 VOL% (35.7-47.0); Hemoglobin 9.6 GM/DL (12.0-16.0); Immature Granulocytes % 9.6 %; Immature Granulocytes Absolute 0.78 #; Lymphocytes # 1.9 10*3/uL (1.4-4.0); Lymphocytes % 22.7 % (21.3-54.2); Mean Corpuscular HGB Conc 28.9 GM/DL (32-36); Mean Platelet Volume 11.9 FL (9.6-12.0); Monocytes % 10.2 % (1.7-12.7); Neutrophils % 54.3 % (38.7-73.9); Platelet Count 246 T/CUMM (130-400); Red Blood Count 3.73 MC/CUMM (3.8-5.5); Red Cell Distribution Width 16.3 % (9.3-17.3); White Blood Count 8.2 T/CUMM (4-12)
[2020-04-20 07:16] LABS: Band Neutrophils 3 % (0-10); Eosinophils 1 % (0-10); Lymphocytes 15 % (20-55); Platelet Estimate Normal; Polychromasia Slight; Segmented Neutrophils 74 % (50-85); Total Cells Counted 100
[2020-04-20] MEDS: methylPREDNISolone SOD SUC 40 MG/1 ML VIAL IV SCH (08:47)
[2020-04-20] MEDS: PANTOPRAZOLE 40 MG VIAL IV SCH (08:47)
[2020-04-20] MEDS: FUROSEMIDE 40 MG/4 ML VIAL IV SCH (08:47)
[2020-04-20] MEDS: ENOXAPARIN 80 MG/0.8 ML SYRINGE SUBCUT SCH ×2 (08:48→21:37)
[2020-04-20] MEDS: POTASSIUM PHOS/SOD PHOS POWDER 250 MG PACK PO SCH ×2 (08:48→21:37)
[2020-04-20] MEDS: CHOLESTYRAMINE 4 GM PACK PO SCH (08:48)
[2020-04-20] MEDS ORDERED: fentaNYL 25 MCG/HR PATCH TRANSDERM SCH (16:51)
[2020-04-20] MEDS: MORPHINE 4 MG/1 ML VIAL IV PRN (17:53)
[2020-04-20] MEDS ORDERED: DIGOXIN 0.5 MG/2 ML AMP IV ONE ×2 (19:04→20:00)
[2020-04-20 19:08] LABS: Apearance,Urine CLOUDY (Clear); Bacteria,Urine Occasional /HPF (Few); Bilirubin,Urine Negative (Negative); Blood, Urine Negative (Negative); Glucose,Urine (UA) Negative (Negative); Ketones,Urine Negative (Negative); Mucus,Urine Occasional /LPF (Occasional); Nitrite,Urine Negative (Negative); Protein,Urine 30 MG/DL; Squamous Epithelial Cell,Urine Many /HPF (0-10); Urine Color Yellow (Yellow); Urine Specific Gravity 1.023 (1.001-1.035); Urine Urobilinogen < 2.0 EU/DL (0.2-1.0); WBC,Urine 3 /HPF (0-6)
[2020-04-20] MEDS: ACETAMINOPHEN 325 MG/10.15 ML UDCUP PO PRN (19:40)
[2020-04-20] MEDS ORDERED: MORPHINE 4 MG/1 ML VIAL IV ONE (20:13)
[2020-04-20 20:40] LABS: ABG Base Excess 4.3 MMOL/L (-2.5-2.5); ABG HCO3 28.3 MMOL/L (20-26); ABG PCO2 67.1 MM HG (35-48); ABG PH 7.298 (7.35-7.45); ABG TCO2 29.9 MMOL/L (23-27); Allen Test Positive; Pt O2 Delivery Device Other
[2020-04-20] MEDS ORDERED: LORazepam 2 MG/1 ML VIAL ONE (21:20)
[2020-04-20] MEDS ORDERED: LORazepam 2 MG/1 ML VIAL IV ONE (21:22)
[2020-04-20 23:06] LABS: Allen Test Positive; Pt O2 Delivery Device BIPAP
[2020-04-20 23:07] LABS: ABG Base Excess 4.3 MMOL/L (-2.5-2.5); ABG HCO3 32.9 MMOL/L (20-26); ABG Oxygen Saturation 98.7 % (95-100); ABG PH 7.273 (7.35-7.45); ABG PO2 176.6 MM HG (80-95); ABG TCO2 35.1 MMOL/L (23-27)
[2020-04-20 23:08] LABS: ABG PCO2 72.8 MM HG (35-48)
[2020-04-20] MEDS ORDERED: ETOMIDATE 20 MG/10 ML VIAL IV ONE (23:24)
[2020-04-20] MEDS ORDERED: SUCCINYLCHOLINE 200 MG/10 ML VIAL ONE (23:25)
[2020-04-21] MEDS ORDERED: ETOMIDATE 20 MG/10 ML VIAL IV ONE ×2 (00:05→00:07)
[2020-04-21] MEDS ORDERED: SUCCINYLCHOLINE 200 MG/10 ML VIAL ONE (00:09)
[2020-04-21] MEDS ORDERED: SUCCINYLCHOLINE 200 MG/10 ML VIAL IV ONE (00:09)
[2020-04-21] MEDS: NOREPINEPHRINE 8 MG in SODIUM CHLORIDE 0.9% 242 ML IV PRN ×3 (00:34→20:05)
[2020-04-21 01:00] LABS: ABG Base Excess -2.9 MMOL/L (-2.5-2.5); ABG HCO3 21.9 MMOL/L (20-26); ABG Oxygen Saturation 94.9 % (95-100); ABG PO2 94.8 MM HG (80-95); ABG TCO2 25.6 MMOL/L (23-27)
[2020-04-21] MEDS ORDERED: AMIODARONE INJ 450 MG in DEXTROSE 5% 241 ML IV SCH (01:00)
[2020-04-21 01:03] LABS: ABG PCO2 74.1 MM HG (35-48); ABG PH 7.175 (7.35-7.45)
[2020-04-21] MEDS: ROCURONIUM 500 MG in SODIUM CHLORIDE 0.9% 500 ML IV PRN ×5 (01:12→23:51)
[2020-04-21 01:27] LABS: Alanine Aminotransferase 148 U/L (13-56); Albumin 1.9 G/DL (3.4-5.0); Alkaline Phosphatase 85 U/L (45-117); Aspartate Amino Transferase 139 U/L (0-37); Bilirubin,Total < 0.39 MG/DL (0.2-1.0); Blood Urea Nitrogen 16 MG/DL (7-18); Calcium 9.7 MG/DL (8.5-10.1); Estimated Glom Filtration Rate 157 ML/MIN; Glucose 191 MG/DL (74-106); Osmolality,Calculated 297.4 MOS/KG (273-304); Total Protein 6.4 G/DL (6.4-8.3); Troponin I 0.025 NG/ML (0.00-0.045)
[2020-04-21 01:45] LABS: Basophils # 0.1 10*3/uL (0.0-0.2); Basophils % 0.4 % (0.0-0.8); Eosinophils # 0.1 10*3/uL (0.0-0.87); Eosinophils % 0.3 % (0.00-10.9); Hematocrit 37.1 VOL% (35.7-47.0); Immature Granulocytes % 12.6 %; Immature Granulocytes Absolute 3.35 #; Lymphocytes # 7.1 10*3/uL (1.4-4.0); Lymphocytes % 26.6 % (21.3-54.2); Mean Corpuscular Volume 96.9 FL (87-102); Mean Platelet Volume 11.2 FL (9.6-12.0); Monocytes % 4.9 % (1.7-12.7); NRBC # 0.27 10*3/uL; Neutrophils % 55.2 % (38.7-73.9); Platelet Count 425 T/CUMM (130-400); Red Blood Count 3.83 MC/CUMM (3.8-5.5); Red Cell Distribution Width 16.4 % (9.3-17.3); White Blood Count 26.7 T/CUMM (4-12)
[2020-04-21] MEDS ORDERED: AMIODARONE 150 MG/3 ML VIAL ONE (01:52)
[2020-04-21] MEDS ORDERED: SODIUM BICARBONATE 50 MEQ/50 ML SYRINGE IV ONE (01:52)
[2020-04-21] MEDS ORDERED: EPINEPHrine 1 MG/ML VIAL ONE (01:52)
[2020-04-21] MEDS ORDERED: CALCIUM CHLORIDE 1,000 MG/10 ML VIAL IV ONE (01:52)
[2020-04-21] MEDS ORDERED: LIDOCAINE 1% 5 ML VIAL ONE (01:52)
[2020-04-21] MEDS ORDERED: MAGNESIUM SULFATE 1 GM/2 ML VIAL ONE (01:52)
[2020-04-21 02:10] LABS: INR 1.1; PT Patient Result 11.9 SECS (9.8-11.9); Partial Thromboplastin Time 27.6 SECS (23.9-33.8)
[2020-04-21 02:31] LABS: Band Neutrophils 23 % (0-10); Lymphocytes 20 % (20-55); Metamyelocytes 10 %; Myelocytes 2 %; Nucleated Red Blood Cells 3 (0-5); Platelet Estimate Increased; Segmented Neutrophils 37 % (50-85); Total Cells Counted 100
[2020-04-21 02:32] LABS: Anisocytosis 1+; Hypersegmented Neutrophil 1+; Hypochromasia 1+; Macrocytosis 1+; Polychromasia Few
[2020-04-21] MEDS: POTASSIUM CHLORIDE 20 MEQ/15 ML UDCUP PER TUBE SCH ×2 (02:52→08:04)
[2020-04-21] MEDS: INSULIN LISPRO 100 UNIT/ML SUBCUT SCH ×3 (06:21→17:03)
[2020-04-21 06:34] LABS: INR 1.1; PT Patient Result 11.5 SECS (9.8-11.9); Partial Thromboplastin Time 26.2 SECS (23.9-33.8)
[2020-04-21 06:37] LABS: Alanine Aminotransferase 148 U/L (13-56); Albumin 1.9 G/DL (3.4-5.0); Alkaline Phosphatase 83 U/L (45-117); Aspartate Amino Transferase 130 U/L (0-37); Blood Urea Nitrogen 18 MG/DL (7-18); Calcium 9.1 MG/DL (8.5-10.1); Estimated Glom Filtration Rate 166 ML/MIN; Glucose 151 MG/DL (74-106); Total Protein 6.6 G/DL (6.4-8.3)
[2020-04-21 06:39] LABS: Troponin I 0.169 NG/ML (0.00-0.045)
[2020-04-21 06:53] LABS: Basophils # 0.2 10*3/uL (0.0-0.2); Basophils % 0.7 % (0.0-0.8); Eosinophils # 0.1 10*3/uL (0.0-0.87); Eosinophils % 0.6 % (0.00-10.9); Hematocrit 36.7 VOL% (35.7-47.0); Immature Granulocytes % 11.1 %; Immature Granulocytes Absolute 2.38 #; Lymphocytes # 2.5 10*3/uL (1.4-4.0); Lymphocytes % 11.7 % (21.3-54.2); Mean Corpuscular HGB Conc 27.2 GM/DL (32-36); Mean Corpuscular Volume 94.6 FL (87-102); Monocytes % 11.5 % (1.7-12.7); NRBC # 0.13 10*3/uL; Neutrophils % 64.4 % (38.7-73.9); Platelet Count 492 T/CUMM (130-400); Red Blood Count 3.88 MC/CUMM (3.8-5.5); Red Cell Distribution Width 16.3 % (9.3-17.3); White Blood Count 21.4 T/CUMM (4-12)
[2020-04-21 07:05] LABS: Anisocytosis 1+; Band Neutrophils 6 % (0-10); Lymphocytes 14 % (20-55); Macrocytosis 1+; Metamyelocytes 3 %; Myelocytes 1 %; Platelet Estimate Increased; Promyelocytes 2 %; Reactive Lymphocytes 2+; Segmented Neutrophils 66 % (50-85); Total Cells Counted 100
[2020-04-21 07:06] LABS: Acanthocytes Few; Atypical Lymphocytes Few; Hypochromasia 1+; Ovalocytes 1+; Polychromasia Few
[2020-04-21] MEDS: AMIODARONE INJ 450 MG in DEXTROSE 5% 241 ML IV SCH (07:25)
[2020-04-21] MEDS: ACETAMINOPHEN 325 MG/10.15 ML UDCUP PO PRN ×2 (08:03→16:43)
[2020-04-21] MEDS: PANTOPRAZOLE 40 MG VIAL IV SCH (08:03)
[2020-04-21] MEDS: ENOXAPARIN 80 MG/0.8 ML SYRINGE SUBCUT SCH ×2 (08:04→21:20)
[2020-04-21] MEDS: methylPREDNISolone SOD SUC 40 MG/1 ML VIAL IV SCH (08:04)
[2020-04-21] MEDS: POTASSIUM PHOS/SOD PHOS POWDER 250 MG PACK PO SCH (08:04)
[2020-04-21 08:17] LABS: ABG Base Excess 2.6 MMOL/L (-2.5-2.5); ABG HCO3 29.2 MMOL/L (20-26); ABG Oxygen Saturation 99.3 % (95-100); ABG PCO2 55.1 MM HG (35-48); ABG PH 7.342 (7.35-7.45); ABG PO2 268.6 MM HG (80-95); ABG TCO2 30.9 MMOL/L (23-27)
[2020-04-21] MEDS: fentaNYL INJ 1,250 MCG in SODIUM CHLORIDE 0.9% 225 ML IV PRN ×2 (11:17→19:07)
[2020-04-21 11:39] LABS: ABG Base Excess 0.1 MMOL/L (-2.5-2.5); ABG HCO3 28.2 MMOL/L (20-26); ABG Oxygen Saturation 99.4 % (95-100); ABG PCO2 65.5 MM HG (35-48); ABG PH 7.252 (7.35-7.45); ABG PO2 298.5 MM HG (80-95); ABG TCO2 30.2 MMOL/L (23-27)
[2020-04-22] MEDS: INSULIN LISPRO 100 UNIT/ML SUBCUT SCH ×4 (00:25→18:12)
[2020-04-22] MEDS: fentaNYL INJ 1,250 MCG in SODIUM CHLORIDE 0.9% 225 ML IV PRN ×3 (03:41→20:30)
[2020-04-22] MEDS: NOREPINEPHRINE 8 MG in SODIUM CHLORIDE 0.9% 242 ML IV PRN ×2 (05:10→19:21)
[2020-04-22 05:20] LABS: ABG Base Excess -5.3 MMOL/L (-2.5-2.5); ABG HCO3 20.1 MMOL/L (20-26); ABG Oxygen Saturation 99.6 % (95-100); ABG PCO2 62.6 MM HG (35-48); ABG TCO2 22.4 MMOL/L (23-27)
[2020-04-22 05:32] LABS: Basophils # 0.2 10*3/uL (0.0-0.2); Basophils % 0.8 % (0.0-0.8); Eosinophils # 0.6 10*3/uL (0.0-0.87); Eosinophils % 2.7 % (0.00-10.9); Hematocrit 32.2 VOL% (35.7-47.0); Hemoglobin 8.9 GM/DL (12.0-16.0); Immature Granulocytes % 10.2 %; Immature Granulocytes Absolute 2.16 #; Lymphocytes # 2.2 10*3/uL (1.4-4.0); Lymphocytes % 10.1 % (21.3-54.2); Mean Corpuscular HGB Conc 27.6 GM/DL (32-36); Mean Corpuscular Volume 93.6 FL (87-102); Mean Platelet Volume 10.7 FL (9.6-12.0); NRBC # 0.04 10*3/uL; Neutrophils % 65.2 % (38.7-73.9); Platelet Count 397 T/CUMM (130-400); Red Blood Count 3.44 MC/CUMM (3.8-5.5); Red Cell Distribution Width 16.2 % (9.3-17.3); White Blood Count 21.2 T/CUMM (4-12)
[2020-04-22 05:40] LABS: Calcium 8.6 MG/DL (8.5-10.1); Osmolality,Calculated 281.8 MOS/KG (273-304)
[2020-04-22 05:52] LABS: Band Neutrophils 2 % (0-10); Eosinophils 4 % (0-10); Hypochromasia 1+; Lymphocytes 11 % (20-55); Myelocytes 2 %; Platelet Estimate Adequate; Segmented Neutrophils 73 % (50-85); Total Cells Counted 100
[2020-04-22 05:53] LABS: Macrocytosis Slight
[2020-04-22] MEDS: ROCURONIUM 500 MG in SODIUM CHLORIDE 0.9% 500 ML IV PRN (05:59)
[2020-04-22] MEDS: AMIODARONE INJ 450 MG in DEXTROSE 5% 241 ML IV SCH (07:34)
[2020-04-22] MEDS: ENOXAPARIN 80 MG/0.8 ML SYRINGE SUBCUT SCH ×2 (08:29→21:53)
[2020-04-22] MEDS: methylPREDNISolone SOD SUC 40 MG/1 ML VIAL IV SCH (08:30)
[2020-04-22] MEDS: PANTOPRAZOLE 40 MG VIAL IV SCH (08:30)
[2020-04-22 09:04] LABS: ABG HCO3 20.2 MMOL/L (20-26); ABG Oxygen Saturation 99.2 % (95-100); ABG PCO2 56.6 MM HG (35-48); ABG PH 7.217 (7.35-7.45); ABG TCO2 21.9 MMOL/L (23-27)
[2020-04-22] MEDS: CISATRACURIUM 200 MG in SODIUM CHLORIDE 0.9% 180 ML IV PRN ×3 (12:26→23:51)
[2020-04-23] MEDS: INSULIN LISPRO 100 UNIT/ML SUBCUT SCH ×5 (00:05→23:43)
[2020-04-23 04:02] LABS: ABG HCO3 19.9 MMOL/L (20-26); ABG Oxygen Saturation 97.8 % (95-100); ABG PCO2 53.9 MM HG (35-48); ABG PO2 114.8 MM HG (80-95); ABG TCO2 21.6 MMOL/L (23-27)
[2020-04-23 04:03] LABS: ABG PH 7.186 (7.35-7.45)
[2020-04-23] MEDS: fentaNYL INJ 1,250 MCG in SODIUM CHLORIDE 0.9% 225 ML IV PRN ×3 (04:21→21:40)
[2020-04-23 04:39] LABS: Calcium 8.5 MG/DL (8.5-10.1); Osmolality,Calculated 277.5 MOS/KG (273-304)
[2020-04-23 05:07] LABS: Basophils % 0.3 % (0.0-0.8); Eosinophils % 0.1 % (0.00-10.9); Immature Granulocytes % 9.6 %; Immature Granulocytes Absolute 1.53 #; Lymphocytes # 0.7 10*3/uL (1.4-4.0); Lymphocytes % 4.7 % (21.3-54.2); Mean Corpuscular HGB Conc 28.1 GM/DL (32-36); Mean Corpuscular Volume 91.5 FL (87-102); Mean Platelet Volume 10.7 FL (9.6-12.0); Monocytes % 4.8 % (1.7-12.7); Neutrophils % 80.5 % (38.7-73.9); Platelet Count 299 T/CUMM (130-400); Red Blood Count 2.95 MC/CUMM (3.8-5.5); Red Cell Distribution Width 15.7 % (9.3-17.3); White Blood Count 15.9 T/CUMM (4-12)
[2020-04-23 05:13] LABS: Hemoglobin 7.6 GM/DL (12.0-16.0)
[2020-04-23 05:16] LABS: Band Neutrophils 6 % (0-10); Hypochromasia 1+; Lymphocytes 5 % (20-55); Metamyelocytes 1 %; Segmented Neutrophils 86 % (50-85); Total Cells Counted 100
[2020-04-23 05:17] LABS: Burr Cells Slight; Macrocytosis Slight; Platelet Estimate Normal
[2020-04-23] MEDS: CISATRACURIUM 200 MG in SODIUM CHLORIDE 0.9% 180 ML IV PRN ×2 (06:28→12:54)
[2020-04-23] MEDS: PANTOPRAZOLE 40 MG VIAL IV SCH (09:31)
[2020-04-23] MEDS: methylPREDNISolone SOD SUC 40 MG/1 ML VIAL IV SCH (09:31)
[2020-04-23] MEDS: ENOXAPARIN 80 MG/0.8 ML SYRINGE SUBCUT SCH ×2 (09:31→20:32)
[2020-04-24 04:12] LABS: ABG Base Excess -12.4 MMOL/L (-2.5-2.5); ABG HCO3 14.6 MMOL/L (20-26); ABG Oxygen Saturation 98.3 % (95-100); ABG PCO2 46.1 MM HG (35-48); ABG TCO2 15.4 MMOL/L (23-27)
[2020-04-24 04:16] LABS: Basophils % 0.2 % (0.0-0.8); Eosinophils % 0.2 % (0.00-10.9); Hematocrit 26.9 VOL% (35.7-47.0); Hemoglobin 7.8 GM/DL (12.0-16.0); Immature Granulocytes Absolute 1.68 #; Lymphocytes # 0.6 10*3/uL (1.4-4.0); Lymphocytes % 3.3 % (21.3-54.2); Mean Corpuscular Volume 87.3 FL (87-102); Mean Platelet Volume 10.7 FL (9.6-12.0); Monocytes % 6.9 % (1.7-12.7); NRBC # 0.04 10*3/uL; Neutrophils % 80.4 % (38.7-73.9); Platelet Count 371 T/CUMM (130-400); Red Blood Count 3.08 MC/CUMM (3.8-5.5); Red Cell Distribution Width 16.2 % (9.3-17.3); White Blood Count 18.7 T/CUMM (4-12)
[2020-04-24 04:37] LABS: ABG PH 7.147 (7.35-7.45)
[2020-04-24 04:46] LABS: Band Neutrophils 5 % (0-10); Burr Cells Slight; Hypochromasia 1+; Lymphocytes 4 % (20-55); Ovalocytes Slight; Platelet Estimate Adequate; Segmented Neutrophils 86 % (50-85); Total Cells Counted 100
[2020-04-24 04:47] LABS: Macrocytosis Slight
[2020-04-24 04:55] LABS: Calcium 7.9 MG/DL (8.5-10.1); Osmolality,Calculated 272.2 MOS/KG (273-304)
[2020-04-24] MEDS: fentaNYL INJ 1,250 MCG in SODIUM CHLORIDE 0.9% 225 ML IV PRN (05:53)
[2020-04-24] MEDS: INSULIN LISPRO 100 UNIT/ML SUBCUT SCH ×3 (06:13→17:43)
[2020-04-24] MEDS: PANTOPRAZOLE 40 MG VIAL IV SCH (09:05)
[2020-04-24] MEDS: ENOXAPARIN 80 MG/0.8 ML SYRINGE SUBCUT SCH ×2 (09:05→20:47)
[2020-04-24] MEDS: methylPREDNISolone SOD SUC 40 MG/1 ML VIAL IV SCH (09:05)
[2020-04-24] MEDS: SODIUM BICARB INJ 150 MEQ in DEXTROSE 5% 850 ML IV SCH (11:50)
[2020-04-24] MEDS ORDERED: SODIUM BICARBONATE 50 MEQ/50 ML VIAL IV ONE (16:42)
[2020-04-25] MEDS: INSULIN LISPRO 100 UNIT/ML SUBCUT SCH ×5 (00:06→23:13)
[2020-04-25] MEDS: SODIUM BICARB INJ 150 MEQ in DEXTROSE 5% 850 ML IV SCH ×3 (00:09→15:49)
[2020-04-25 04:05] LABS: ABG Base Excess -10.6 MMOL/L (-2.5-2.5); ABG HCO3 15.9 MMOL/L (20-26); ABG Oxygen Saturation 94.1 % (95-100); ABG PCO2 49.6 MM HG (35-48); ABG PO2 82.8 MM HG (80-95); ABG TCO2 17.1 MMOL/L (23-27)
[2020-04-25 04:09] LABS: Basophils # 0.1 10*3/uL (0.0-0.2); Basophils % 0.3 % (0.0-0.8); Hematocrit 28.5 VOL% (35.7-47.0); Hemoglobin 8.3 GM/DL (12.0-16.0); Immature Granulocytes Absolute 1.66 #; Lymphocytes # 0.6 10*3/uL (1.4-4.0); Lymphocytes % 2.7 % (21.3-54.2); Mean Corpuscular HGB Conc 29.1 GM/DL (32-36); Mean Corpuscular Volume 88.5 FL (87-102); Mean Platelet Volume 10.9 FL (9.6-12.0); Monocytes % 10.4 % (1.7-12.7); NRBC # 0.27 10*3/uL; Neutrophils % 79.6 % (38.7-73.9); Platelet Count 490 T/CUMM (130-400); Red Blood Count 3.22 MC/CUMM (3.8-5.5); White Blood Count 23.7 T/CUMM (4-12)
[2020-04-25 04:28] LABS: Calcium 7.8 MG/DL (8.5-10.1); Osmolality,Calculated 282.1 MOS/KG (273-304)
[2020-04-25 04:31] LABS: ABG PH 7.162 (7.35-7.45)
[2020-04-25 04:53] LABS: Band Neutrophils 2 % (0-10); Hypochromasia 1+; Lymphocytes 2 % (20-55); Microcytosis Slight; Nucleated Red Blood Cells 3 (0-5); Platelet Estimate Adequate; Segmented Neutrophils 80 % (50-85); Total Cells Counted 100
[2020-04-25] MEDS: PANTOPRAZOLE 40 MG VIAL IV SCH (08:30)
[2020-04-25] MEDS: methylPREDNISolone SOD SUC 40 MG/1 ML VIAL IV SCH (08:31)
[2020-04-25] MEDS: ENOXAPARIN 80 MG/0.8 ML SYRINGE SUBCUT SCH ×2 (08:31→20:54)
[2020-04-25] MEDS: MULTIVITAMIN LIQUID (CENTRUM) 60 ML BOTTLE PO SCH (08:31)
[2020-04-26 03:46] LABS: Basophils # 0.1 10*3/uL (0.0-0.2); Basophils % 0.2 % (0.0-0.8); Eosinophils % 0.2 % (0.00-10.9); Hemoglobin 7.7 GM/DL (12.0-16.0); Immature Granulocytes % 7.3 %; Immature Granulocytes Absolute 1.61 #; Lymphocytes # 0.8 10*3/uL (1.4-4.0); Lymphocytes % 3.5 % (21.3-54.2); Mean Corpuscular HGB Conc 30.8 GM/DL (32-36); Mean Corpuscular Volume 83.6 FL (87-102); Mean Platelet Volume 11.5 FL (9.6-12.0); Monocytes % 5.8 % (1.7-12.7); NRBC # 0.44 10*3/uL; Platelet Count 386 T/CUMM (130-400); Red Blood Count 2.99 MC/CUMM (3.8-5.5); Red Cell Distribution Width 17.6 % (9.3-17.3); White Blood Count 22.1 T/CUMM (4-12)
[2020-04-26] MEDS: SODIUM BICARB INJ 150 MEQ in DEXTROSE 5% 850 ML IV SCH ×2 (03:47→06:27)
[2020-04-26] MEDS: NOREPINEPHRINE 8 MG in SODIUM CHLORIDE 0.9% 242 ML IV PRN ×2 (03:48→14:25)
[2020-04-26 03:52] LABS: Calcium 7.8 MG/DL (8.5-10.1); Osmolality,Calculated 281.4 MOS/KG (273-304)
[2020-04-26 04:33] LABS: Band Neutrophils 3 % (0-10); Lymphocytes 5 % (20-55); Metamyelocytes 1 %; Myelocytes 1 %; Nucleated Red Blood Cells 3 (0-5); Segmented Neutrophils 86 % (50-85); Total Cells Counted 100
[2020-04-26 04:35] LABS: Hypochromasia 1+; Platelet Estimate Normal; Polychromasia Few
[2020-04-26] MEDS: INSULIN LISPRO 100 UNIT/ML SUBCUT SCH ×3 (05:49→17:11)
[2020-04-26 07:19] LABS: ABG Base Excess -8.5 MMOL/L (-2.5-2.5); ABG HCO3 17.6 MMOL/L (20-26); ABG Oxygen Saturation 97.2 % (95-100); ABG PCO2 52.8 MM HG (35-48); ABG TCO2 18.8 MMOL/L (23-27)
[2020-04-26 07:24] LABS: ABG PH 7.186 (7.35-7.45)
[2020-04-26] MEDS: methylPREDNISolone SOD SUC 40 MG/1 ML VIAL IV SCH (08:12)
[2020-04-26] MEDS: PANTOPRAZOLE 40 MG VIAL IV SCH (08:14)
[2020-04-26] MEDS: MULTIVITAMIN LIQUID (CENTRUM) 60 ML BOTTLE PO SCH (08:14)
[2020-04-26] MEDS: ENOXAPARIN 80 MG/0.8 ML SYRINGE SUBCUT SCH (08:15)
[2020-04-26] MEDS ORDERED: VANCOMYCIN INJ 2,500 MG in SODIUM CHLORIDE 0.9% 500 ML IV ONE (12:00)
[2020-04-26] MEDS: SODIUM CHLORIDE 0.9% 1,000 ML IV SCH (12:23)
[2020-04-26] MEDS: MEROPENEM 500 MG in SODIUM CHLORIDE 0.9% 100 ML IV SCH ×2 (12:26→21:15)
[2020-04-26] MEDS: MORPHINE 4 MG/1 ML VIAL IV PRN (12:37)
[2020-04-26 13:26] LABS: Apearance,Urine CLOUDY (Clear); Bacteria,Urine Many /HPF (Few); Bilirubin,Urine Negative (Negative); Blood, Urine Large mg/dL (Negative); Glucose,Urine (UA) Negative (Negative); Ketones,Urine Negative (Negative); Nitrite,Urine Negative (Negative); Protein,Urine 100 MG/DL; RBC,Urine 100 /HPF (0-4); Urine Color Yellow (Yellow); Urine Specific Gravity 1.019 (1.001-1.035); Urine Urobilinogen < 2.0 EU/DL (0.2-1.0); WBC,Urine 1515 /HPF (0-6)
[2020-04-26 13:27] LABS: Hepatitis B Core IgM Quant 0.13 Index; Hepatitis B Surface Ag Quant < 0.10 Index; Hepatitis B Surface Ag Result Negative (Negative); Hepatitis C Virus Ab Quant 0.26 Index; Hepatitis C Virus Ab Result Negative (Negative)
[2020-04-26] MEDS ORDERED: NOREPINEPHRINE 16 MG in SODIUM CHLORIDE 0.9% 234 ML IV PRN (14:25)
[2020-04-26] MEDS ORDERED: PHENYLEPHRINE DRIP 40 MG/250 ML PREMIX IV PRN (14:29)
[2020-04-26] MEDS ORDERED: DOPamine 800 MG/250 ML PREMIX IV PRN (14:29)
[2020-04-26] MEDS ORDERED: ALBUMIN 25% 25 GM in PREMIX 1 EACH IV PRN (14:54)
[2020-04-26] MEDS ORDERED: PHENYLEPHRINE INJ 160 MG in SODIUM CHLORIDE 0.9% 234 ML IV PRN (14:55)
[2020-04-26 15:31] LABS: INR 1.2; Partial Thromboplastin Time 41.3 SECS (23.9-33.8)
[2020-04-26] MEDS ORDERED: HEPARIN 10,000 UNIT/10 ML VIAL IV SCH (16:00)
[2020-04-26] MEDS ORDERED: ALBUMIN 25% 25 GM in PREMIX 1 EACH IV ONE (21:00)
[2020-04-26] MEDS ORDERED: AMIODARONE 450 MG/9 ML VIAL IV ONE (21:54)
[2020-04-26] MEDS ORDERED: AMIODARONE 150 MG/3 ML VIAL ONE (21:54)
[2020-04-26] MEDS ORDERED: AMIODARONE INJ 150 MG in DEXTROSE 5% 100 ML IV ONE (22:01)
[2020-04-26] MEDS ORDERED: AMIODARONE INJ 450 MG in DEXTROSE 5% 241 ML IV SCH (22:30)
[2020-04-27] MEDS: SODIUM CHLORIDE 0.9% 1,000 ML IV SCH (02:47)
[2020-04-27] MEDS: INSULIN LISPRO 100 UNIT/ML SUBCUT SCH (02:47)
[2020-04-27] MEDS ORDERED: AMIODARONE INJ 450 MG in DEXTROSE 5% 241 ML IV SCH (04:30)
[2020-04-27] MEDS ORDERED: ENOXAPARIN 80 MG/0.8 ML SYRINGE SUBCUT SCH (09:00)
== END 2020-04-26 22:34 | disposition expired | DRG 870 ==
LOC: N.ED 16:04 → N.EDINP 20:24 → SUPCPDRO 20:24 → SUATTDRO 20:24 → N.ICU 23:11 → N.CC 03-24 18:29
PROVIDERS: ADMIT Internal Medicine; ATTEND Internal Medicine